=== PATIENT | female | born 1985 | race Caucasian/White ===

== ENCOUNTER → 2020-03-30 15:48 | Outpatient (CLI) | payer MEDICAID, SELFPAY ==
[2020-03-30 15:14] VITALS: BMI 20.2
[2020-03-30 16:56] LABS: Absolute Lymphocyte Count 3.33 X10^3/uL (0.83-4.51); Absolute Neutrophil Count 7.7 X10^3/uL (2.0-7.7); Basophil# 0.03 X10^3/uL; Basophil% 0.3 % (0-1); Eosinophil# 0.05 X10^3/uL; Eosinophils% 0.4 % (0-5); Hematocrit 43.3 % (37-47); Hemoglobin 14.4 g/dL (12.0-15.0); Lymphocyte # 3.33 X10^3/ul (4.0); Lymphocyte % 27.8 % (19-41); Mean Corp Hgb Conc 33.3 g/dL (32-36); Mean Corpuscular Hgb 30.1 pg (27.0-32.0); Mean Corpuscular Volume 90.4 fL (81-99); Mean Platelet Vol. 10.4 fl (6.2-12.0); Monocyte# 0.82 X10^3/uL; Monocyte% 6.9 % (0-10); NRBC Flagged by Analyzer 0 % (0-5); Neutrophil # 7.67 X10^3/uL (2.7-7.7); Neutrophil % 64.1 % (47-70); Platelet Count 332 K/mm3 (150-450); RBC Distribution Width CV 12.7 % (11.6-14.6); RBC Distribution Width SD 41.7 fl (35.1-43.9); Red Blood Count 4.79 M/mm3 (4.2-5.4)
[2020-03-30 18:01] LABS: ALB/GLOB Ratio 1.1 RATIO (0.9-2.4); AST(SGOT) 20 U/L (15-37); Alanine Aminotransfer ALT/SGPT 25 U/L (13-56); Albumin, Serum 4.1 g/dL (3.2-5.0); Alkaline Phosphatase 81 U/L (45-117); Anion Gap 8 (5-15); BUN 10 mg/dL (7-18); BUN/Creat Ratio 12.7 RATIO (10-20); Calcium,Total 9.5 mg/dL (8.5-10.1); Chloride 103 mmol/L (98-107); Creatinine, Serum 0.79 mg/dL (0.55-1.02); EST Glomerular Filtration Rate 89 mL/min (>60); Est Glom Filt Rate - Afr Amer 108 mL/min (>60); Globulin 3.9 g/dL (2.2-4.2); Glucose 88 mg/dL (74-106); Potassium 3.9 mmol/L (3.5-5.1); Sodium Level 137 mmol/L (136-145); T4 Free Direct 0.93 ng/dL (0.76-1.46); Thyroid Stim Hormone (TSH) 5.99 uIU/mL (0.358-3.74)
== END ==
PROVIDERS: PCP Internal Medicine; Referring Provider Internal Medicine; Visit Provider Internal Medicine
DX: R25.1 Tremor, unspecified (principal)
CPT/HCPCS: 36415; 80053; 84439; 84443; 85025

== ENCOUNTER → 2020-03-31 11:06 | Outpatient (CLI) | payer MEDICAID, SELFPAY ==
[2020-03-30 15:14] VITALS: BMI 20.2
--- NOTE | 2020-03-31 11:09 | RAD_ITS ---
STUDY: X-RAY - LUMBAR SPINE REASON FOR EXAM: Female, 34 years old. tremors, foot drop and hip pain TECHNIQUE: 5 view(s) of the lumbar spine were obtained. COMPARISON: None FINDINGS: Normal lumbar lordosis. There is no substantial scoliosis. There is a normal alignment of the vertebrae. Normal vertebral bodies and endplates. Normal disc space heights. The soft tissue structures are unremarkable. RAD/L/S Spine Min 4 Views IMPRESSION: Normal x-ray examination of the lumbar spine. Electronically Signed: Roque Mcneal MD at 8:55 EDT Tel , Service support ,
--- NOTE | 2020-03-31 11:09 | RAD_ITS ---
STUDY: X-RAY - CERVICAL SPINE REASON FOR EXAM: Female, 34 years old. tremors and foot drop TECHNIQUE: 3 view(s) of the cervical spine were obtained. COMPARISON: None FINDINGS: Normal anterior atlantoaxial articulation. Normal odontoid process. Normal cervical lordosis. Normal vertebral bodies and endplates. Normal disc space heights. Normal visualized intervertebral neuroforamina. The soft tissue structures are unremarkable. RAD/Cerv Spine 2 or 3 Views IMPRESSION: Normal x-ray examination of the visualized cervical spine. Electronically Signed: Juwan Vergara MD at 14:23 EDT , Service support ,
== END ==
PROVIDERS: PCP Internal Medicine; Referring Provider Internal Medicine; Visit Provider Internal Medicine
DX: M21.372 Foot drop, left foot (principal); R25.1 Tremor, unspecified
CPT/HCPCS: 72040; 72110

== ENCOUNTER → 2020-05-31 14:35 | Outpatient (CLI) | payer MEDICAID, SELFPAY ==
[2020-05-31 16:16] LABS: T4 Free Direct 1.06 ng/dL (0.76-1.46); Thyroid Stim Hormone (TSH) 1.83 uIU/mL (0.358-3.74)
== END ==
PROVIDERS: PCP Internal Medicine; Referring Provider Internal Medicine; Visit Provider Internal Medicine
DX: R94.6 Abnormal results of thyroid function studies (principal)
CPT/HCPCS: 36415; 84439; 84443

== ENCOUNTER 2020-11-05 08:00 | Outpatient (RCR) | payer MEDICAID, SELFPAY ==
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
--- NOTE | 2020-11-05 08:29 | HP.PTDCSUM ---
It has been my pleasure to treat ROSITA MEJIAS referred by Dr. Dominick Avendano MD, with the diagnosis of spastic hemiplegia, gait abnormality, L shoulder pain for a total of 7 visit(s). Discharge Date: 11/05/20 Please see the following information for a summary of their discharge status. Subjective: Exercises everyday on steps adn cleaning house. Shoulder feels better but stills ometimes it hurts to use it alot like taking garbage out or taking bike for a ride. Hurts 8/10 for a while. Walking is going OK but wants to be better. LB Pain Intensity (Out of 10): 8 % Improvement: 99 Objective/Function: Full B shoulder AROM without pain today. 4-/5 strength in B shoulders without complaints of pain. FGA is +1 from eval. LEFS is +25. Pt very active and does not want to continue HEP. Would love to ex at gym but not realistic for her situation. Goal 1:: I management of stretch adn strength for her condition(at gym or home) Goal Progress: compliane? Goal 2:: Pt feel walking 50% improved adn no falls Goal Progress: Goal Met Goal 3:: L shoulder 4- elevation withotu popping. and 505 improvement in L shoulder movmeent subjectively. Goal Progress: Goal Met Plan: d/c Discharge Comments: Pt doing very well and back to Dr. Avendano in two weeks. If there are questions or concerns regarding this patient's physical therapy, please feel free to call me at [phone]. Thank you for the referral of this patient. Sincerely, Nick Zheng, DPT, OCS, CSCS
== END 2020-11-05 08:41 | disposition home or self-care (01) ==
LOC: PT 08:00
PROVIDERS: PCP Internal Medicine; Referring Provider Psychiatry & Neurology Neurology; Visit Provider Psychiatry & Neurology Neurology
DX: G81.10 Spastic hemiplegia affecting unspecified side (principal); R26.9 Unspecified abnormalities of gait and mobility; M25.512 Pain in left shoulder
CPT/HCPCS: 97110; 97162; 97164; 97530

== ENCOUNTER 2021-02-20 22:14 | Emergency (ER) | payer MEDICAID, SELFPAY ==
[2021-02-20 22:14] VITALS: BP 118/90; PULSE 89; RESP 18; TEMP 36.2; O2SAT 100; BMI 24.5
--- NOTE | 2021-02-20 22:30 | RAD_ITS ---
EXAM: XR RIGHT ANKLE COMPLETE, 3 OR MORE VIEWS : 1985 CLINICAL INDICATION: PAIN TECHNIQUE: Frontal, lateral and oblique views of the right ankle. This report was created using [employer] report generation technology. COMPARISON: None. FINDINGS: BONES/JOINTS: Unremarkable. No acute fracture. No subluxation. Normal alignment. Preservation of the joint space. No sclerotic or destructive changes observed. SOFT TISSUES: Unremarkable. No soft tissue swelling or gas. No radiopaque foreign body. RAD/Ankle min 3 Views IMPRESSION: Negative right ankle x-rays. at 2259 Reported and signed by: Gurjit Kebede MD Electronically Signed: Gurjit Kebede MD at 22:58 EDT Tel , Service support ,
--- NOTE | 2021-02-20 23:27 | EDS_ITS ---
HPI History of Present Illness Chief Complaint: Lower Extremity Injury Informant: patient Onset/Context/Timing Current Severity: Moderate Maximum Severity: Moderate Narrative Narrative: Patient present secondary to right leg pain. She has a history of spastic hemiparesis. She reports right leg pain today that started around the ankle and goes up her leg. She denies any known injury, but does state has been helping a friend move recently. She is been going up and down steps more than normal. Patient is currently on tizanidine to help with spasms. She has not yet taken her evening dose. She does not have any risk factors for DVT. [facility] Medical History Essential tremor History of bladder infections Spastic hemiparesis Home Medications primidone 50 mg tablet 50 mg PO BID #60 tab 11/30/20 [Rx Last Taken Unknown] tizanidine 4 mg tablet See Rx Instructions PO QHS PRN #60 tab 11/30/20 [Rx Last Taken Unknown] Allergy/AdvReac Type Severity Reaction Status Date / Time codeine AdvReac Hives Verified 02/20/21 22:16 Family History Mother Myocardial infarction Father Myocardial infarction Grandmother Lung cancer Other Alcoholism Asthma Breast cancer Colon cancer Depression Seizures Surgical History History of tubal ligation Social History Smoking Status: Current every day smoker tobacco type: cigarettes Tobacco: How many years used: 10 Electronic Cigarette Use: not used second hand exposure: Yes alcohol intake: current alcohol intake frequency: holidays/special occasions only substance use type: marijuana what type of physical activity do you participate in: none ROS ROS ED Constitutional Constitutional ED: Denies chills or fever(s) Eyes Eyes: Denies change in vision ENT ENT ED: Denies sore throat Cardiovascular Cardiovascular: Denies chest pain Respiratory/Chest Respiratory/Chest: Denies cough or dyspnea Gastrointestinal Gastrointestinal: Denies abdominal pain, diarrhea, nausea or vomiting Genitourinary Genitourinary ED: Denies dysuria Musculoskeletal Musculoskeletal: Reports arthralgias and myalgias; Denies back pain Integumentary Denies rash Neurologic Neurologic: Denies headache(s) Allergic/Immunologic Allergic/Immunologic ED: Denies urticaria EXAM Physical Exam Const Vital Signs: 02/20/21 22:14 Temperature 97.1 F L Temperature Source Temporal Pulse Rate 89 Respiratory Rate 18 Blood Pressure 118/90 H Blood Pressure Mean 99 Pulse Ox 100 Oxygen Delivery Method Room Air Positive well nourished and well developed General Appearance ED: well developed Eyes PERRL Neck full ROM Chest Wall inspection of chest normal and palpation of chest normal Resp normal respiratory effort and clear to auscultation bilaterally Cardio regular rate and regular rhythm GI non-tender Auscultation: normoactive bowel sounds Palpation: soft Extremity normal to inspection Extremity Narrative: Tenderness palpation around the right ankle and right calf. No significant edema or erythema. No palpable cords. Strong distal pulses noted. Neuro oriented x3 and moves all extremities Neuro Narrative: Some spasticity noted in the right leg chronically. No significant deficits. Sensorium / Orientation: alert Psych mental status grossly normal Skin Lesions: no lesions Rashes: no rashes MDM MDM MDM Narrative Medical decision making narrative: Right ankle x-rays were obtained per nursing protocol. Radiography Diagnostic Testing: Radiology Impression Ankle X-Ray 02/20/21 22:30 IMPRESSION: Negative right ankle x-rays. at 2259 Reported and signed by: Gurjit Kebede MD Electronically Signed: Gurjit Kebede MD at 22:58 EDT Tel , Service support , Treatment and Re-Evaluation Comments:: Right ankle x-ray per my interpretation reveals no acute fracture. Test results discussed with patient. At this point we will have the patient return tomorrow for ultrasound of her leg to ensure no DVT. I have low suspicion for this so she will not be covered with anticoagulants tonight. She will continue her pain medications at home per her neurologist. Discharge Plan Triage Chief Complaint: Lower Extremity Injury ED Provider: Caroline Mueller Dx/Rx/DC Orders Clinical Impression: Pain of right calf Instructions: ED Pain, Acute, Uncertain Cause, ED Muscle Strain, Extremity Prescriptions: No Action primidone 50 mg tablet 50 mg PO BID Qty: 60 RF: 2 tizanidine 4 mg tablet See Rx Instructions PO QHS PRN (Reason: muscle spasticity) Qty: 60 RF: 3 Other Ambulatory Orders: Venous Duplex US, Unilateral (Routine) Facility: [facility] [place] - Location: [facility] Ordered By: Dr. Caroline Mueller Primary Care Provider: Arianne Panda Referrals: Arianne Panda MD [Primary Care Provider] - 1 Week if not improving Disposition Disposition: Home, Self Care Discharge Date/Time: 02/20/21 23:41
== END 2021-02-20 23:41 | disposition home or self-care (01) ==
LOC: ED 23:39
PROVIDERS: Emergency Provider Emergency Medicine; PCP Internal Medicine
DX: M79.661 Pain in right lower leg (principal); G25.0 Essential tremor; G81.10 Spastic hemiplegia affecting unspecified side; F17.210 Nicotine dependence, cigarettes, uncomplicated
CPT/HCPCS: 73610; 99284

== ENCOUNTER → 2021-02-24 08:58 | Outpatient (CLI) | payer MEDICAID, SELFPAY ==
--- NOTE | 2021-02-24 09:00 | VDLE_ITS ---
Reason For Study: Pain RIGHT LEFT GSV is normal. CFV is compressible, spontaneous, phasic, CFV is compressible, spontaneous, phasic, competent, and demonstrates normal competent and demonstrates normal augmentation. augmentation. FV is compressible, spontaneous, phasic, competent and demonstrates normal augmentation. POP V is compressible, spontaneous, phasic, competent and demonstrates normal augmentation. T/P Trunk is compressible. PTV is compressible. RT PerV is compressible. Nonvascularized structure noted in the right popliteal fossa that measures 1.64 x 3.21 x 2.34 cm. Procedure This is a venous duplex using B-mode, color flow and spectral Doppler. Exam performed in department. A preliminary report was called and/or faxed to PCP: Farzad. Sudhir seen in ED 02/19/2021. VL/Venous Duplex US, Unilateral Interpretation Summary There is no evidence of right lower extremity deep vein thrombosis. Right great saphenous vein appears patent and compressible segmentally. 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 Clinical correlation would be appropriate Normal flow patterns left common femoral vein Ordering Physician: Caroline Mueller Referring Physician: Arianne Panda Performed By: Ophelia Stallings RVT
== END ==
PROVIDERS: PCP Internal Medicine; Referring Provider Emergency Medicine; Visit Provider Emergency Medicine
DX: M79.604 Pain in right leg (principal)
CPT/HCPCS: 93971

== ENCOUNTER → 2022-01-23 | Outpatient (CLI) | payer MEDICAID, SELFPAY | END | disposition home or self-care (01) | PROVIDERS: PCP Internal Medicine; Referring Provider Nurse Practitioner Family; Visit Provider Nurse Practitioner Family | DX: G81.10 Spastic hemiplegia affecting unspecified side (principal); S06.9X9S Unspecified intracranial injury with loss of consciousness of unspecified duration, sequela; R25.1 Tremor, unspecified ==

== ENCOUNTER → 2023-07-09 | Outpatient (CLI) | payer MEDICAID, SELFPAY ==
[2023-07-09 12:20] LABS: Absolute Lymphocyte Count 1.72 X10^3/uL (0.83-4.51); Absolute Neutrophil Count 6.5 X10^3/uL (2.0-7.7); Basophil# 0.04 X10^3/uL; Basophil% 0.4 % (0-1); Eosinophil# 0.08 X10^3/uL; Eosinophils% 0.9 % (0-5); Hematocrit 43.1 % (37-47); Hemoglobin 14.4 g/dL (12.0-15.0); Lymphocyte # 1.72 X10^3/ul (0.83-4.51); Lymphocyte % 18.6 % (19-41); Mean Corp Hgb Conc 33.4 g/dL (32-36); Mean Corpuscular Hgb 30.7 pg (27.0-32.0); Mean Corpuscular Volume 91.9 fL (81-99); Mean Platelet Vol. 10.3 fl (6.2-12.0); Monocyte# 0.92 X10^3/uL; Monocyte% 9.9 % (0-10); NRBC Flagged by Analyzer 0 % (0-5); Neutrophil # 6.46 X10^3/uL (2.7-7.7); Neutrophil % 69.8 % (47-70); Platelet Count 320 K/mm3 (150-450); RBC Distribution Width CV 13.7 % (11.6-14.6); RBC Distribution Width SD 46.5 fl (35.1-43.9); Red Blood Count 4.69 M/mm3 (4.2-5.4); White Blood Count 9.3 K/mm3 (4.4-11.0)
[2023-07-09 12:55] LABS: Vitamin D,25 Hydroxy 23.4 ng/mL
[2023-07-09 12:58] LABS: ALB/GLOB Ratio 1.1 RATIO (0.9-2.4); AST(SGOT) 19 U/L (15-37); Alanine Aminotransfer ALT/SGPT 18 U/L (13-56); Alkaline Phosphatase 89 U/L (45-117); Anion Gap 5 (5-15); BUN 10 mg/dL (7-18); BUN/Creat Ratio 12.6 RATIO (10-20); Calcium,Total 9.6 mg/dL (8.5-10.1); Chloride 106 mmol/L (98-107); Cholesterol 238 mg/dL (200); EST Glomerular Filtration Rate 86 mL/min (>60); Est Glom Filt Rate - Afr Amer 105 mL/min (>60); Globulin 3.7 g/dL (2.2-4.2); Glucose 102 mg/dL (74-106); High Density Lipoprotein 77 mg/dL; Potassium 4.3 mmol/L (3.5-5.1); Protein, Total 7.7 g/dL (6.4-8.2); Sodium Level 138 mmol/L (136-145); Triglycerides 73 mg/dL; Very Low Density Lipoprotein 15 mg/dL (5-40)
== END | disposition home or self-care (01) ==
LOC: BIMLAB 09:50
PROVIDERS: PCP Internal Medicine; Referring Provider Internal Medicine; Visit Provider Internal Medicine
DX: Z00.00 Encounter for general adult medical examination without abnormal findings (principal); Z13.21 Encounter for screening for nutritional disorder
CPT/HCPCS: 36415; 80053; 80061; 82306; 85025

== ENCOUNTER → 2024-01-16 | Outpatient (CLI) | payer MEDICARE, MEDICAID, SELFPAY ==
[2024-01-16 13:11] LABS: Cholesterol 258 mg/dL (200); High Density Lipoprotein 71 mg/dL; T4 Free Direct 0.48 ng/dL (0.76-1.46); Triglycerides 135 mg/dL; Very Low Density Lipoprotein 27 mg/dL (5-40)
== END | disposition home or self-care (01) ==
LOC: BIMLAB 09:33
PROVIDERS: PCP Internal Medicine; Referring Provider Internal Medicine; Visit Provider Internal Medicine
DX: E78.5 Hyperlipidemia, unspecified (principal)
CPT/HCPCS: 36415; 80061; 84439; 84443

== ENCOUNTER → 2024-05-09 | Outpatient (CLI) | payer MEDICARE, MEDICAID, SELFPAY ==
[2024-05-21 11:09] LABS: HPV APTIMA, High Risk Negative (Negative)
== END | disposition home or self-care (01) ==
LOC: LABSPEC 13:42
PROVIDERS: PCP Internal Medicine; Referring Provider Obstetrics & Gynecology; Visit Provider Obstetrics & Gynecology
DX: Z12.4 Encounter for screening for malignant neoplasm of cervix (principal)
CPT/HCPCS: 87624; 88175; G0145

== ENCOUNTER → 2024-07-23 | Outpatient (CLI) | payer MEDICARE, MEDICAID, SELFPAY ==
[2024-07-23 13:23] LABS: ALB/GLOB Ratio 1.1 RATIO (0.9-2.4); AST(SGOT) 21 U/L (15-37); Alanine Aminotransfer ALT/SGPT 20 U/L (13-56); Albumin, Serum 4.1 g/dL (3.2-5.0); Alkaline Phosphatase 80 U/L (45-117); Anion Gap 5 (5-15); BUN 14 mg/dL (7-18); BUN/Creat Ratio 16.1 RATIO (10-20); Calcium,Total 9.6 mg/dL (8.5-10.1); Chloride 107 mmol/L (98-107); Cholesterol 259 mg/dL (200); Creatinine, Serum 0.87 mg/dL (0.55-1.02); EST Glomerular Filtration Rate 78 mL/min (>60); Est Glom Filt Rate - Afr Amer 94 mL/min (>60); Globulin 3.6 g/dL (2.2-4.2); Glucose 86 mg/dL (74-106); High Density Lipoprotein 74 mg/dL; Potassium 4.6 mmol/L (3.5-5.1); Protein, Total 7.7 g/dL (6.4-8.2); Sodium Level 138 mmol/L (136-145); T4 Free Direct 0.38 ng/dL (0.76-1.46); Triglycerides 120 mg/dL; Very Low Density Lipoprotein 24 mg/dL (5-40)
== END | disposition home or self-care (01) ==
LOC: BIMLAB 10:18
PROVIDERS: PCP Internal Medicine; Referring Provider Internal Medicine; Visit Provider Internal Medicine
DX: E03.9 Hypothyroidism, unspecified (principal); E78.5 Hyperlipidemia, unspecified
CPT/HCPCS: 36415; 80053; 80061; 84439; 84443

== ENCOUNTER → 2024-10-29 | Outpatient (CLI) | payer MEDICARE, MEDICAID, SELFPAY ==
[2024-10-29 12:19] LABS: Absolute Lymphocyte Count 1.34 X10^3/uL (0.83-4.51); Absolute Neutrophil Count 7.7 X10^3/uL (2.0-7.7); Basophil# 0.04 X10^3/uL; Basophil% 0.4 % (0-1); Eosinophil# 0.08 X10^3/uL; Eosinophils% 0.8 % (0-5); Hematocrit 40.8 % (37-47); Hemoglobin 13.3 g/dL (12.0-15.0); Lymphocyte # 1.34 X10^3/ul (0.83-4.51); Lymphocyte % 13.4 % (19-41); Mean Corp Hgb Conc 32.6 g/dL (32-36); Mean Corpuscular Hgb 30.2 pg (27.0-32.0); Mean Corpuscular Volume 92.7 fL (81-99); Mean Platelet Vol. 10.4 fl (6.2-12.0); Monocyte# 0.78 X10^3/uL; Monocyte% 7.8 % (0-10); NRBC Flagged by Analyzer 0 % (0-5); Neutrophil # 7.68 X10^3/uL (2.7-7.7); Platelet Count 338 K/mm3 (150-450); RBC Distribution Width CV 13.8 % (11.6-14.6); RBC Distribution Width SD 47.3 fl (35.1-43.9)
[2024-10-29 13:08] LABS: ALB/GLOB Ratio 1.8 RATIO (0.9-2.4); AST(SGOT) 23 U/L (<=31); Alanine Aminotransfer ALT/SGPT 12 U/L (<=34); Albumin, Serum 4.5 g/dL (3.5-5.0); Alkaline Phosphatase 74 U/L (35-104); Anion Gap 11 (5-15); BUN 12 mg/dL (4-19); BUN/Creat Ratio 16.7 RATIO (10-20); Calcium,Total 9.8 mg/dL (7.6-11.0); Carbon Dioxide 24.1 mmol/L (21.0-32.0); Chloride 104 mmol/L (98-108); Cholesterol 271 mg/dL (<=200); Creatinine, Serum 0.74 mg/dL (0.70-1.20); EST Glomerular Filtration Rate 107 (>60); Globulin 2.6 g/dL (2.2-4.2); Glucose 78 mg/dL (70-99); High Density Lipoprotein 64 mg/dL; Low Density Lipoprotein Calc. 178 mg/dL; Potassium 4.1 mmol/L (3.3-5.1); Sodium Level 139 mmol/L (133-145); Total Bilirubin 0.29 mg/dL (0.00-1.30); Triglycerides 143 mg/dL; Very Low Density Lipoprotein 29 mg/dL (5-40); cholesterol:hdl ratio screen 4.23
== END | disposition home or self-care (01) ==
LOC: BIMLAB 09:39
PROVIDERS: PCP Internal Medicine; Visit Provider Internal Medicine
DX: E03.9 Hypothyroidism, unspecified (principal); E78.5 Hyperlipidemia, unspecified
CPT/HCPCS: 36415; 80053; 80061; 84439; 84443; 85025

== ENCOUNTER → 2024-11-20 | Outpatient (CLI) | payer MEDICARE, MEDICAID, SELFPAY ==
--- NOTE | 2024-11-20 10:55 | EKG12_ITS ---
Test Reason : HYPERTENSION Blood Pressure : */* mmHG Vent. Rate : 99 BPM Atrial Rate : 99 BPM P-R Int : 130 ms QRS Dur : 60 ms QT Int : 338 ms P-R-T Axes : 79 82 63 degrees QTcB Int : 433 ms Normal sinus rhythm Septal infarct , age undetermined Abnormal ECG Confirmed by ELLI THOMAS, SARA ([id number]), editorial clerk VICKI FREDERICK ([id number]) on 11/24/2024 7:01:48 AM Referred By: Arianne Panda Confirmed By: SARA CALLOWAY MD
--- OUTSIDE RECORDS SUMMARY | 2024-11-20 20:36 | XMS RPT_ITS | CCD ---
Author Organization [facility] Care Team Providers Care [employer] Director Name Role Phone Dr. Arianne Panda Primary Care Provider [phone] Dr. Arianne Panda Referring Provider [phone] [place] INSURANCE INSPECTOR, FELA Cr Attending Provider Dr. Arianne Panda Primary Care Provider [phone] Dr. Arianne Panda Attending Provider [phone] Dr. Arianne Panda Referring Provider [phone] Dr. Arianne Panda MD Primary Care Provider Dr. Arianne Panda MD Attending Provider [phone] Dr. Arianne Panda MD Referring Provider [phone] Oleghe, Efewongbe Primary Care Unavailable Oleghe, Efewongbe Attending Unavailable Oleghe, Efewongbe Primary Care Unavailable Oleghe, Efewongbe Attending Unavailable Oleghe, Efewongbe Referring Unavailable Oleghe, Efewongbe Primary Care Unavailable VandCaroline Reyes Attending Unavailabl e Vande VelCaroline wadsworth Referring Unavailabl e Oleghe, Efewongbe Attending Unavailable Oleghe, Efewongbe Referring Unavailable Oleghe, Efewongbe Primary Care Unavailable Vande Caroline Nelson Attending Unavailabl e Vande VeldeCaroline Referring Unavailabl e Oleghe, Efewongbe Primary Care Unavailable Oleghe, Efewongbe Primary Care Unavailable Oleghe, Efewongbe Attending Unavailable Oleghe, Efewongbe Referring Unavailable Oleghe, Efewongbe Primary Care Unavailable Oleghe, Efewongbe Attending Unavailable Oleghe, Efewongbe Referring Unavailable Oleghe, Efewongbe Primary Care Unavailable Caroline Jose Attending Unavailabl e Oleghe, Efewongbe Referring Unavailable Naa Garza Attending Unavailable Oleghe, Efewongbe Referring Unavailable Oleghe, Efewongbe Primary Care Unavailable Naa Garza Attending Unavailable Oleghe, Efewongbe Referring Unavailable Oleghe, Efewongbe Primary Care Unavailable Oleghe, Efewongbe Primary Care Unavailable Oleghe, Efewongbe Attending Unavailable Oleghe, Efewongbe Referring Unavailable Oleghe, Efewongbe Primary Care Unavailable Oleghe, Efewongbe Attending Unavailable Oleghe, Efewongbe Referring Unavailable Oleghe, Efewongbe Primary Care Unavailable Oleghe, Efewongbe Attending Unavailable Oleghe, Efewongbe Referring Unavailable Allergies Allergy Classification Reported Allergen(s) Allergy Type Date of Onset Reaction(s) Facility (4 sources) Codeine Drug Allergy 12-06-2021 [facility] (2 sources) tiZANidine Drug Allergy 10-29-2024 [facility] (1 source) Codeine Drug Allergy 10-29-[address] [facility] (1 source) tiZANidine Drug Allergy 10-29-[address] [facility] Medications Current Medications Medication Drug Class(es) Dates Sig (Normalized) Sig (Original) amLODIPine 5 mg oral tablet (3 sources) Dihydropyridine Calcium Channel Jose G Start: 07-23-2024 End: 10-29-2024 take 1 tablet by mouth once daily Amlodipine 5 mg tablet Active 5 mg PO daily October 29, 2024 10:03am busPIRone hydrochloride 5 mg oral tablet (7 sources) Start: 12-06-2021 End: 12-04-2022 take 1 tablet by mouth twice daily Buspirone 5 mg tablet Active 5 mg PO .COMPLEX 60 December 04, 2022 3:26pm Take 1 tablet orally twice per day. levothyroxine sodium 0.1 mg oral tablet (5 sources) l-Thyroxine Start: 10-29-2024 take 1 tablet by mouth once daily Levothyroxine 100 mcg tablet Active 100 ug PO DAILY 60 October 29 2025 2:14pm Start: 07-23-2024 End: 10-29-2024 take 1 tablet by mouth once daily Levothyroxine 75 mcg tablet Discontinued 75 ug PO DAILY July 23, 2024 5:42pm October 29, 2024 2:15pm Start: 01-17-2024 End: 07-23-2024 take 1 tablet by mouth once daily Levothyroxine 50 mcg tablet Discontinued 50 ug PO DAILY January 17, 2024 12:00am July 23, 2024 5:43pm omeprazole 40 mg delayed release oral capsule (8 sources) Proton Pump Inhibitor Start: 07-09-2023 End: 10-29-2024 take 1 capsule by mouth once daily 30 minutes before breakfast Omeprazole 40 mg capsule,delayed release(DR/EC) Active 40 mg PO DAILY October 29, 2024 10:03am Take 30 minutes before breakfast primidone 50 mg oral tablet (20 sources) Anti-epileptic Agent Start: 12-06-2021 End: 10-29-2024 take 1 tablet by mouth three times daily Primidone 50 mg tablet Active 50 mg PO .COMPLEX October 29, 2024 10:03am Take 1 tablet orally 3 times per day. Start: 11-23-2021 End: 12-06-2021 take 1 tablet by mouth twice daily Primidone 50 mg tablet Discontinued 50 mg PO TWICE A DAY 60 November 23, 2021 1:22pm December 06, 2021 3:26pm Start: 07-28-2021 End: 11-23-2021 Primidone 50 mg tablet Disco ntinued 0 .ROUTE .COMPLEX September 28, 2021 11:08am November 23, 2021 1:23pm Take half a tablet PO once daily x 1 week, then half a tablet twice daily x 1 week, then 1 tablet BID thereafter Start: 11-30-2020 End: 07-28-2021 take 1 tablet by mouth twice daily Primidone 50 mg tablet Discontinued 50 mg PO TWICE A DAY March 07, 2021 1:08pm July 28, 2021 4:57pm Start: 09-07-2020 End: 11-30-2020 take 0.5 tablet by mouth once daily, then take 0.5 tablet by mouth twice daily, then take 1 tablet by mouth twice daily Primidone 50 mg tablet Discontinued 50 mg PO ONCE 60 September 07, 2020 12:00am November 30, 2020 4:38pm one-half tablet PO daily for one week then one-half PO BID for one week then one tablet PO BID thereafter rosuvastatin calcium 10 mg oral tablet (1 source) HMG-CoA Reductase Inhibitor Start: 10-29-2024 take 1 tablet by mouth once daily Rosuvastatin 10 mg tablet Active 10 mg PO daily October 29, 2024 12:00am Completed/Discontinued Medications Medication Drug Class(es) Dates Sig (Normalized) Sig (Original) baclofen 10 mg oral tablet (4 sources) gamma-Aminobutyric Acid-ergic Agonist Start: 06-22-2020 End: 09-07-2020 take 1 tablet by mouth three times daily Baclofen 10 mg tablet Discontinued 10 mg PO THREE TIMES A DAY June 22, 2020 1:00am September 07, 2020 1:27pm metroNIDAZOLE 500 mg oral tablet (2 sources) Nitroimidazole Antimicrobial Start: 05-26-2024 End: 06-02-2024 take 1 tablet by mouth twice daily Metronidazole 500 mg tablet Discontinued 500 mg PO TWICE A DAY 14 May 26, 2024 1:00am June 01, 2024 1:00am June 02, 2024 1:09am tiZANidine 4 mg oral tablet (20 sources) Central alpha-2 Adrenergic Agonist Start: 12-04-2022 take 3 tablets by mouth once daily Tizanidine Active 12 MG PO .COMPLEX December 04, 2022 2:29pm Take 3 tabs orally nightly. Start: 12-06-2021 End: 01-16-2024 take 3 tablets by mouth once daily Tizanidine 4 mg tablet Discontinued 12 mg PO .COMPLEX December 04, 2022 3:29pm January 16, 2024 9:16am Take 3 tabs orally nightly. Start: 12-06-2021 End: 12-04-2022 take 12 mg by mouth at bedtime Tizanidine Discontinued 12 MG PO AT BEDTIME December 06, 2021 2:21pm December 04, 2022 2:30pm Start: 11-30-2020 End: 12-06-2021 take 4-8 mg by mouth at bedtime as needed Tizanidine 4 mg tablet Discontinued 4 - 8 mg PO AT BEDTIME as needed for muscle spasticity 60 November 23, 2021 1:23pm December 06, 2021 3:26pm Start: 11-30-2020 End: 12-06-2021 take 4-8 mg by mouth at bedtime Tizanidine Discontinue d 4 - 8 MG PO AT BEDTIME 60 November 23, 2021 12:23pm December 06, 2021 2:26pm Problems Active Problems Problem Classification Problem Date Documented Date Episodic/Chronic Anxiety disorders (4 sources) Anxiety; Translations: [Anxiety disorder, unspecified] 12-04-2022 Chronic Disorders of lipid metabolism (6 sources) Hyperlipidemia; Translations: [Hyperlipidemia, unspecified] Onset: 10-29-2024 07-23-2024 Chronic Esophageal disorders (7 sources) Gastroesophageal reflux disease; Translations: [Gastro-esophageal reflux disease without esophagitis] Onset: 01-25-2024 07-09-2023 Chronic Essential hypertension (7 sources) Hypertensive disorder; Translations: [Essential (primary) hypertension] Onset: 07-23-2024 07-23-2024 Chronic Intracranial injury (5 sources) Intracranial injury with loss of consciousness; Translations: [Unspecified intracranial injury with loss of consciousness of unspecified duration, sequela] Episodic Menstrual disorders (1 source) Excessive and frequent menstruation with regular cycle; Translations: [Excessive and frequent menstruation with regular cycle] Onset: 05-19-2024 Chronic Other connective tissue disease (4 sources) Pain in calf; Translations: [Pain in right lower leg] 02-20-2021 Episodic Other connective tissue disease (2 sources) Foot pain; Translations: [Pain in unspecified foot] 01-16-2024 Episodic Other female genital disorders (2 sources) Abnormal uterine bleeding; Translations: [Abnormal uterine and vaginal bleeding, unspecified] 05-09-2024 Chronic Other female genital disorders (2 sources) Vaginal discharge; Translations: [Other specified noninflammatory disorders of vagina] 06-25-2024 Episodic Comment on above: previous trich posit verónica; treated with flagyl Other hereditary and degenerative nervous system conditions (4 sources) Essential tremor; Translations: [Essential tremor] 12-07-2021 Chronic Other hereditary and degenerative nervous system conditions (1 source) Essential tremor; Translations: [Essential and other specified forms of tremor] Chronic Other lower respiratory disease (4 sources) Cough; Translations: [Cough] 06-24-2021 Episodic Other skin disorders (3 sources) Lesion of face; Translations: [Disorder of the skin and subcutaneous tissue, unspecified] 07-09-2023 Episodic Paralysis (5 sources) Hemiparesis; Translations: [Spastic hemiplegia affecting unspecified side] Chronic Residual codes; unclassified (4 sources) Insomnia; Translations: [Insomnia, unspecified] 12-07-2021 Episodic Residual codes; unclassified (1 source) Insomnia, unspecified; Translations: [Insomnia, unspecified] Episodic Thyroid disorders (6 sources) Hypothyroidism; Translations: [Hypothyroidism, unspecified] Onset: 11-01-2024 07-23-2024 Chronic Viral infection (4 sources) Disease caused by 2019-nCoV; Translations: [COVID-19] 06-24-2021 Episodic Past or Other Problems Problem Classification Problem Date Documented Date Episodic/Chronic Other connective tissue disease (1 source) Pain in unspecified foot; Translations: [Pain in unspecified foot] Onset: 01-25-2024 Episodic Other female genital disorders (1 source) Other specified noninflammatory disorders of vagina; Translations: [Other specified noninflammatory disorders of vagina] Onset: 06-25-2024 Episodic Other screening for suspected conditions (not mental disorders or infectious disease) (7 sources) Patient encounter status; Translations: [Encounter for screening for nutritional disorder] Onset: 01-25-2024 07-09-2023 Episodic Results Test Name Value Interpretation Reference Range Facility Absolute lymphocyte countOrd ered By: Arianne Panda on 10-29-2024 Lymphocytes Auto (Unsp spec) [#/Vol] 1.34 10*3/uL 0.83-4.[address] [facility] Absolute neutrophil countOrd ered By: Arianne Panda on 10-29-2024 Neutrophils (Bld) [#/Vol] 7.7 10*3/uL 2.0-7.[address] [facility] Anion gap in Serum or Plasma Ordered By: Arianne Panda on 10-29-2024 Anion gap [Moles/Vol] 11 mmol/L 5-15 [facility] Automated lymphocyte count a s percentage of total leukocytesOrdered By: Arianne Panda on 10-29-2024 Lymphocytes/100 WBC Auto (Unsp spec) 13.4 % Low 19-[address] [facility] BUN/creatinine ratioOrdered By: Arianne Panda on 10-29-2024 Urea nitrogen/Creatinine [Mass ratio] 16.7 mg/mg 10-[address] [facility] Basophil percentageOrdered B y: Arianne Panda on 10-29-2024 Basophils/100 WBC (Bld) 0.4 % 0-1 [facility] Bilirubin, totalOrdered By: Arianne Panda on 10-29-2024 Bilirubin [Mass/Vol] 0.29 mg/dL 0.00-1.30 [facility] CBC W/Diff, Automatedon 10-16 Absolute Lymph 1.34 X10 3/uL Normal 0.83-4.[address] [facility] Comment on above: Performed By: #### L 500.4100, L500.4050, L501.9520, L506.0400, L100.0100 #### [facility] [address] [place], [address] Absolute Neut 7.7 X10 3/uL Normal 2.0-7.[address] [facility] Comment on above: Performed By: #### L 500.4100, L500.4050, L501.9520, L506.0400, L100.0100 #### [facility] [address] [place], [address] Basophils/100 WBC (Bld) 0.4 % Normal 0-1 [facility] Comment on above: Performed By: #### L 500.4100, L500.4050, L501.9520, L506.0400, L100.0100 #### [facility] [address] [place], [address] Eosinophils/100 WBC (Bld) 0.8 % Normal 0-[address] [facility] Comment on above: Performed By: #### L 500.4100, L500.4050, L501.9520, L506.0400, L100.0100 #### [facility] [address] [place], [address] Erythrocyte distribution width (RBC) [Ratio] 13.8 % Normal 11.6-14.[address] [facility] Comment on above: Performed By: #### L 500.4100, L500.4050, L501.9520, L506.0400, L100.0100 #### [facility] [address] [place], [address] Hematocrit (Bld) [Volume fraction] 40.8 % Normal 37-[address] [facility] Comment on above: Performed By: #### L 500.4100, L500.4050, L501.9520, L506.0400, L100.0100 #### [facility] [address] [place], [address] Hemoglobin (Bld) [Mass/Vol] 13.3 g/dL Normal 12.0-15.[address] [facility] Comment on above: Performed By: #### L 500.4100, L500.4050, L501.9520, L506.0400, L100.0100 #### [facility] [address] [place], [address] IG% 0.600 Normal 0.0-0.[address] [facility] Comment on above: Result Comment: IG% - Immature Granulocytes (promyelocytes, myelocytes and metamyelocytes) > 1% indicates that a LEFT SHIFT is Present. Performed By: #### L 500.4100, L500.4050, L501.9520, L506.0400, L100.0100 #### [facility] [address] [place], [address] Lymphocytes/100 WBC (Bld) 13.4 % Low 19-[address] [facility] Comment on above: Performed By: #### L 500.4100, L500.4050, L501.9520, L506.0400, L100.0100 #### [facility] [address] [place], [address] MCH (RBC) [Entitic mass] 30.2 pg Normal 27.0-32.[address] [facility] Comment on above: Performed By: #### L 500.4100, L500.4050, L501.9520, L506.0400, L100.0100 #### [facility] [address] [place], [address] MCHC (RBC) [Mass/Vol] 32.6 g/dL Normal 32-36 [facility] Comment on above: Performed By: #### L 500.4100, L500.4050, L501.9520, L506.0400, L100.0100 #### [facility] [address] [place], [address] MCV (RBC) [Entitic vol] 92.7 fL Normal 81-99 [facility] Comment on above: Performed By: #### L 500.4100, L500.4050, L501.9520, L506.0400, L100.0100 #### [facility] [address] [place], [address] Monocytes/100 WBC (Bld) 7.8 % Normal 0-10 [facility] Comment on above: Performed By: #### L 500.4100, L500.4050, L501.9520, L506.0400, L100.0100 #### [facility] [address] [place], [address] Neutrophils/100 WBC (Bld) 77.0 % High 47-[address] [facility] Comment on above: Performed By: #### L 500.4100, L500.4050, L501.9520, L506.0400, L100.0100 #### [facility] [address] [place], [address] Nucleated RBC (Bld) [#/Vol] 0 10*3/uL Normal 0-[address] [facility] Comment on above: Performed By: #### L 500.4100, L500.4050, L501.9520, L506.0400, L100.0100 #### [facility] [address] [place], [address] Platelet mean volume (Bld) [Entitic vol] 10.4 fL Normal 6.2-12.[address] [facility] Comment on above: Performed By: #### L 500.4100, L500.4050, L501.9520, L506.0400, L100.0100 #### [facility] [address] [place], [address] Platelets (Bld) [#/Vol] 338 10*3/uL Normal 150-[address] [facility] Comment on above: Performed By: #### L 500.4100, L500.4050, L501.9520, L506.0400, L100.0100 #### [facility] [address] [place], [address] RBC (Bld) [#/Vol] 4.40 10*6/uL Normal 4.2-5.4 [facility] Comment on above: Performed By: #### L 500.4100, L500.4050, L501.9520, L506.0400, L100.0100 #### [facility] [address] [place], [address] RDW SD 47.3 fl High 35.1-43.[address] [facility] Comment on above: Performed By: #### L 500.4100, L500.4050, L501.9520, L506.0400, L100.0100 #### [facility] [address] [place], [address] WBC (Bld) [#/Vol] 10.0 10*3/uL Normal 4.4-11.0 [facility] Comment on above: Performed By: #### L 500.4100, L500.4050, L501.9520, L506.0400, L100.0100 #### [facility] [address] [place], [address] Calculated very low density lipoprotein (VLDL) cholesterol measurementOrdered By: Arianne Panda on 10-29-2024 Calculated very low density lipoprotein (VLDL) cholesterol measurement 29 mg/dL 5-[address] [facility] Carbon dioxide, total [Moles /volume] in Central venous bloodOrdered By: Arianne Panda on 10-29-2024 CO2 [Moles/Vol] 24.1 mmol/L 21.0-32.[address] [facility] Chloride assayOrdered By: Eunice Panda on 10-29-2024 Chloride [Moles/Vol] 104 mmol/L 98-108 [facility] Comprehensive Metabolic Prof ilon 10-29-2024 Albumin [Mass/Vol] 4.5 g/dL Normal 3.5-5.0 [facility] Comment on above: Performed By: #### L 500.4100, L500.4050, L501.9520, L506.0400, L100.0100 #### [facility] [address] [place], [address] Albumin/Globulin [Mass ratio] 1.8 {ratio} Normal 0.9-2.[address] [facility] Comment on above: Performed By: #### L 500.4100, L500.4050, L501.9520, L506.0400, L100.0100 #### [facility] [address] [place], [address] ALK PHOS 74 U/L Normal 35-[address] [facility] Comment on above: Performed By: #### L 500.4100, L500.4050, L501.9520, L506.0400, L100.0100 #### [facility] [address] [place], [address] ALT [Catalytic activity/Vol] 12 U/L Normal <=[address] [facility] Comment on above: Performed By: #### L 500.4100, L500.4050, L501.9520, L506.0400, L100.0100 #### [facility] [address] [place], [address] AST [Catalytic activity/Vol] 23 U/L Normal <=[address] [facility] Comment on above: Performed By: #### L 500.4100, L500.4050, L501.9520, L506.0400, L100.0100 #### [facility] [address] [place], [address] Bilirubin [Mass/Vol] 0.29 mg/dL Normal 0.00-1.30 [facility] Comment on above: Performed By: #### L 500.4100, L500.4050, L501.9520, L506.0400, L100.0100 #### [facility] [address] [place], [address] BUN/CRE 16.7 RATIO Normal 10-[address] [facility] Comment on above: Performed By: #### L 500.4100, L500.4050, L501.9520, L506.0400, L100.0100 #### [facility] [address] [place], [address] Calcium [Mass/Vol] 9.8 mg/dL Normal 7.6-11.0 [facility] Comment on above: Performed By: #### L 500.4100, L500.4050, L501.9520, L506.0400, L100.0100 #### [facility] [address] [place], [address] Chloride [Moles/Vol] 104 mmol/L Normal 98-108 [facility] Comment on above: Performed By: #### L 500.4100, L500.4050, L501.9520, L506.0400, L100.0100 #### [facility] [address] [place], [address] CO2 [Moles/Vol] 24.1 mmol/L Normal 21.0-32.[address] [facility] Comment on above: Performed By: #### L 500.4100, L500.4050, L501.9520, L506.0400, L100.0100 #### [facility] [address] [place], [address] Creatinine [Mass/Vol] 0.74 mg/dL Normal 0.70-1.20 [facility] Comment on above: Performed By: #### L 500.4100, L500.4050, L501.9520, L506.0400, L100.0100 #### [facility] [address] [place], [address] GAP 11 Normal 5-[address] [facility] Comment on above: Performed By: #### L 500.4100, L500.4050, L501.9520, L506.0400, L100.0100 #### [facility] [address] [place], [address] GFR/1.73 sq M.predicted among non-blacks MDRD (S/P/Bld) [Vol rate/Area] 107 mL/min/{1.73_m2} Normal >[address] [facility] Comment on above: Result Comment: mL/m in/1.73m2 CKD-EPI Creatinine Equation (2020) Performed By: #### L 500.4100, L500.4050, L501.9520, L506.0400, L100.0100 #### [facility] [address] [place], [address] Globulin (S) [Mass/Vol] 2.6 g/dL Normal 2.2-4.2 [facility] Comment on above: Performed By: #### L 500.4100, L500.4050, L501.9520, L506.0400, L100.0100 #### [facility] [address] [place], [address] Glucose [Mass/Vol] 78 mg/dL Normal 70-99 [facility] Comment on above: Performed By: #### L 500.4100, L500.4050, L501.9520, L506.0400, L100.0100 #### [facility] [address] [place], [address] Potassium [Moles/Vol] 4.1 mmol/L Normal 3.3-5.1 [facility] Comment on above: Performed By: #### L 500.4100, L500.4050, L501.9520, L506.0400, L100.0100 #### [facility] [address] [place], [address] Sodium [Moles/Vol] 139 mmol/L Normal 133-145 [facility] Comment on above: Performed By: #### L 500.4100, L500.4050, L501.9520, L506.0400, L100.0100 #### [facility] [address] [place], [address] T PROT 7.0 g/dL Normal 5.9-8.[address] [facility] Comment on above: Performed By: #### L 500.4100, L500.4050, L501.9520, L506.0400, L100.0100 #### [facility] [address] [place], [address] Urea nitrogen [Mass/Vol] 12 mg/dL Normal 4-[address] [facility] Comment on above: Performed By: #### L 500.4100, L500.4050, L501.9520, L506.0400, L100.0100 #### [facility] [address] [place], [address] Eosinophil percentageOrdered By: Arianne Panda on 10-29-2024 Eosinophils/100 WBC (Bld) 0.8 % 0-[address] [facility] Erythrocyte distribution wid th ratioOrdered By: [facility] Berrienc[facility] Panda on 10-29-2024 Erythrocyte distribution width (RBC) [Ratio] 13.8 % 11.6-14.[address] [facility] Erythrocyte distribution wid th standard deviationOrdered By: lukasfremontcristiano Panda on 10-29-2024 Erythrocyte distribution width (RBC) [Ratio] 47.3 fl High 35.1-43.[address] [facility] Glomerular filtration rate ( GFR) estimation/1.73 sq m using serum, plasma, or whole bOrdered By: [facility] Berriencristiano Panda on 10-29-2024 GFR/1.73 sq M.predicted among non-blacks MDRD (S/P/Bld) [Vol rate/Area] 107 mL/min/{1.73_m2} >[address] [facility] Comment on above: mL/min/1.73m2 CKD-EP I Creatinine Equation (2020) Hematocrit Auto (Bld) [Volum e fraction]Ordered By: Arianne Panda on 10-29-2024 Hematocrit (Bld) [Volume fraction] 40.8 % 37-[address] [facility] Hemoglobin measurementOrdere d By: Arianne Panda on 10-29-2024 Hemoglobin (Bld) [Mass/Vol] 13.3 g/dL 12.0-15.[address] [facility] Immature granulocytes/100 WB C Auto (Bld)Ordered By: Arianne Panda on 10-29-2024 Immature granulocytes/100 WBC (Bld) 0.600 % 0.0-0.[address] [facility] Comment on above: IG% - Immature Granu locytes (promyelocytes, myelocytes and metamyelocytes) > 1% indicates that a LEFT SHIFT is Present. Internal Medicine Office Vis reggie 10-29-2024 Internal Medicine Office Visit [facility] [address] [place] [address] [place] [address] OFFICE VISIT Date of Service: 10/29/24 MR#: [id number] Acct: [id number] Name: ROSITA MEJIAS Rep #: [id number] : 1985 Provider: Dr. 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: No Accompanied by: Jqrawx-Kf-Zer Is patient in pain?: No Allergies tizanidine Allergy (Mild, Verified 10/29/24 08:52) anxiety codeine Adverse Reaction (Verified 10/29/24 08:52) Hives Medications ???Medication ???Instructions ???Recorded ???Confirmed ???Type buspirone 5 mg tablet 5 mg PO .COMPLEX #60 tabs 12/04/22 10/29/24 Rx levothyroxine 75 mcg tablet 75 mcg PO DAILY #60 tabs 07/23/24 10/29/24 Rx amlodipine 5 mg tablet 5 mg PO QDAY #90 tabs 10/29/24 Rx omeprazole 40 mg capsule,delayed 40 mg PO DAILY #90 caps 10/29/24 0 10/29/24 Rx release primidone 50 mg tablet 50 mg PO .COMPLEX #90 tabs 5 10/29/24 Rx Nurse's Note: Needs omeprazole, Synthroid, primidone and amlodipine refilled. [facility] Medical History Hypertension Hypothyroidism Screening for thyroid disorder Hyperlipidemia Foot pain GERD (gastroesophageal reflux disease) Facial lesion Encounter for vitamin deficiency screening Preventative health care Essential tremor Spastic hemiparesis History of bladder infections Surgical History History of tubal ligation Family History Mother Myocardial infarction Father Myocardial infarction Grandmother Lung cancer Other Alcoholism Asthma Breast cancer Colon cancer Depression Seizures Social History Smoking Status: Current every day smoker tobacco type: cigarettes Tobacco: How many years used: 10 Electronic Cigarette Use: not used second hand exposure: Yes alcohol intake: current alcohol intake frequency: holidays/special occasions only substance use type: marijuana caffeine: Yes what type of physical activity do you participate in: none additional social history: Boyfriend- Baljinder [facility] HPI Chief Complaint: follow up chronic conditions Details: ROSITA MEJIAS, is a 39 F who presents to the office today for follow-up of her chronic medical conditions. No acute concerns at this time. History of hypothyroidism and last TSH was quite elevated. She states that she has been taking her levothyroxine consistently first thing in the morning and waiting an hour before having coffee or food. History of hypertension, currently on amlodipine. No chest pain, palpitation or shortness of breath. No syncopal or near syncopal episodes. Blood pressure today at 132/82 mmHg. Other chronic medical conditions are stable. ROS Const Constitutional: No body ache, chills, excessive sweating, fatigue, fever(s), frequent falls, headache(s), snoring, weakness, sleep problems or change in appetite Eyes Eyes: No blurry vision, change in vision, bulging eyes, floaters, eye pain or Light sensitivity ENT ENT: No abnormal hearing, ear or mastoid pain, tinnitus, balance problems, nasal congestion, headache(s), neck pain or sore throat Resp Respiratory: No cough, excessive phlegm production, pain on inspiration, shortness of breath, snoring or wheezing Cardio Cardiology: No chest pain at rest, chest pain with exertion, excessive sweating, shortness of breath, dyspnea on exertion, lightheadedness, orthopnea or palpitations Gastro GI: No abdominal pain, change in bowel habits, constipation, cramping, diarrhea, nausea/dyspepsia or vomiting Genitourinary-Female : No burning urination, painful urination, urinary incontinence, urinary frequency, abnormal vaginal bleeding or pelvic pain Musc Musculoskeletal: No abnormal gait, joint pain, back pain, limited range of motion, neck pain or numbness Skin Skin: No dry skin, redness, excessive hair growth, yellowing of the eye, lesions, itchy eyes, rash or wounds Neuro Neurology: No abnormal gait, abnormal hearing, behavioral changes, unsteady gait/balance, weakness, frequent falls, headache(s), memory loss or (more content not included)... Normal [facility] LDL calc ser/plasOrdered By: Arianne Panda on 10-29-2024 Cholesterol in LDL [Mass/Vol] 178 mg/dL [facility] Comment on above: Hhxiwdymzf=793-849 m g/dL & Higher Vshk=055 mg/dL or greater Laboratory - Chemistry and C hemistry - challengeOrdered By: Arianne Panda on 10-29-2024 AST [Catalytic activity/Vol] 23 U/L <[address] [facility] Lipid Profileon 10-29-2024 CHOL:HDL 4.[address] [facility] Comment on above: Performed By: #### L 500.4100, L500.4050, L501.9520, L506.0400, L100.0100 #### [facility] Laboratory [address] [place], [address] Cholesterol [Mass/Vol] 271 mg/dL High <=200 [facility] Comment on above: Result Comment: Chol esterol level, Desirable <200 mg/dL Borderline high cholesterol 200-239 mg/dL High cholesterol >=240 mg/dL Recommendations of the NCEP Adult Treatment Panel for the following risk-cutoff thresholds for the [place] population. Performed By: #### L 500.4100, L500.4050, L501.9520, L506.0400, L100.0100 #### [facility] [address] [place], [address] Cholesterol in HDL [Mass/Vol] 64 mg/dL Normal [facility] Comment on above: Result Comment: Franicne onal Cholesterol Education Program (NCEP) guidelines: <40 mg/dL: Low HDL-cholesterol (major risk factor for CHD) >= 60 mg/dL: High HDL-cholesterol (negative risk factor for CHD) HDL-cholesterol is affected by a number of factors, e.g. smoking, exercise, hormones, sex and age. Performed By: #### L 500.4100, L500.4050, L501.9520, L506.0400, L100.0100 #### [facility] [address] [place], [address] Cholesterol in LDL [Mass/Vol] 178 mg/dL Normal [facility] Comment on above: Result Comment: Bord eezeys=029-425 mg/dL Higher Antj=638 mg/dL or greater Performed By: #### L 500.4100, L500.4050, L501.9520, L506.0400, L100.0100 #### [facility] [address] [place], [address] Cholesterol in VLDL [Mass/Vol] 29 mg/dL Normal 5-[address] [facility] Comment on above: Performed By: #### L 500.4100, L500.4050, L501.9520, L506.0400, L100.0100 #### [facility] [address] [place], [address] Triglyceride [Mass/Vol] 143 mg/dL Normal [facility] Comment on above: Result Comment: The drugs N-Acetylcysteine and Metamizole may falsely depress this assay. Normal range: <150 mg/dL Borderline High: 150-199 mg/dL High: 200-499 mg/dL Very High: >500 mg/dL Performed By: #### L 500.4100, L500.4050, L501.9520, L506.0400, L100.0100 #### [facility] [address] [place], [address] MCV (mean corpuscular volume ) determinationOrdered By: Arianne Panda on 10-29-2024 MCV (RBC) [Entitic vol] 92.7 fL 81-99 [facility] Mean corpuscular hemoglobin (MCH) determinationOrdered By: Arianne Panda on 10-29-2024 MCH (RBC) [Entitic mass] 30.2 pg 27.0-32.[address] [facility] Mean corpuscular hemoglobin concentration (MCHC) determinationOrdered By: Arianne Panda on 10-29-2024 MCHC (RBC) [Mass/Vol] 32.6 g/dL 32-36 [facility] Mean platelet volume determi nationOrdered By: Arianne Panda on 10-29-2024 Platelet mean volume (Bld) [Entitic vol] 10.4 fL 6.2-12.[address] [facility] Monocyte percentageOrdered B y: Arianne Panda on 10-29-2024 Monocytes/100 WBC (Bld) 7.8 % 0-10 [facility] Neutrophil percentageOrdered By: Simranfremontcristiano Panda on 10-29-2024 Neutrophils/100 WBC (Bld) 77.0 % High 47-[address] [facility] Nucleated red blood cell per centageOrdered By: Arianne Panda on 10-29-2024 Nucleated RBC/100 WBC (Bld) [Ratio] 0 % 0-[address] [facility] Platelet countOrdered By: Eunice Panda on 10-29-2024 Platelets (Bld) [#/Vol] 338 10*3/uL 150-[address] [facility] Potassium measurement (mass/ volume)Ordered By: Arianne Panda on 10-29-2024 Potassium (Unsp spec) [Mass/Vol] 4.1 mmol/L 3.3-5.[address] [facility] RBC Auto (Bld) [#/Vol]Ordere d By: Arianne Panda on 10-29-2024 RBC (Bld) [#/Vol] 4.40 10*6/uL 4.2-5.4 [facility] Screening total cholesterol/ high density lipoprotein (HDL) cholesterol ratioOrdered By: Arianne Panda on 10-29-2024 Cholesterol.total/Choles terol in HDL [Mass ratio] 4.23 {ratio} [facility] Serum creatinine measurement (mass/volume)Ordered By: Arianne Panda on 10-29-2024 Creatinine [Mass/Vol] 0.74 mg/dL 0.70-1.20 [facility] Serum globulin measurementOr dered By: Arianne Panda on 10-29-2024 Globulin (S) [Mass/Vol] 2.6 g/dL 2.2-4.2 [facility] Serum glucose measurement (m ass/volume)Ordered By: Arianne Panda on 10-29-2024 Glucose [Mass/Vol] 78 mg/dL 70-99 [facility] Serum or plasma alanine bryant otransferase (ALT) measurementOrdered By: Arianne Panda on 10-29-2024 ALT [Catalytic activity/Vol] 12 U/L <[address] [facility] Serum or plasma albumin dawit urement (mass/volume)Ordered By: Arianne Panda on 10-29-2024 Albumin [Mass/Vol] 4.5 g/dL 3.5-5.0 [facility] Serum or plasma albumin/glob ulin mass ratioOrdered By: Arianne Panda on 10-29-2024 Albumin/Globulin [Mass ratio] 1.8 {ratio} 0.9-2.[address] [facility] Serum or plasma alkaline jany sphatase measurementOrdered By: Arianne Panda on 10-29-2024 ALP [Catalytic activity/Vol] 74 U/L 35-[address] [facility] Serum or plasma calcium dawit urement (mass/volume)Ordered By: Arianne Panda on 10-29-2024 Calcium [Mass/Vol] 9.8 mg/dL 7.6-11.0 [facility] Serum or plasma cholesterol in HDL measurement (mass/volume)Ordered By: Arianne Panda on 10-29-2024 Cholesterol in HDL [Mass/Vol] 64 mg/dL >[address] [facility] Comment on above: National Cholesterol Education Program (NCEP) guidelines:<40 mg/dL: Low HDL-cholesterol (major risk factor for CHD)>= 60 mg/dL: High HDL-cholesterol (negative risk factor for CHD)HDL-cholesterol is affected by a number of factors, e.g. smoking, exercise, hormones, sex and age. Serum or plasma cholesterol measurement (mass/volume)Ordered By: Arianne Panda on 10-29-2024 Cholesterol [Mass/Vol] 271 mg/dL High <201 [facility] Comment on above: Cholesterol level, D esirable <200 mg/dLBorderline high cholesterol 200-239 mg/dLHigh cholesterol >=240 mg/dLRecommendations of the NCEP Adult Treatment Panel for the following risk-cutoff thresholds for the [place] population. Serum or plasma urea nitroge n measurement (mass/volume)Ordered By: Arianne Panda on 10-29-2024 Urea nitrogen [Mass/Vol] 12 mg/dL 4-[address] [facility] Sodium levelOrdered By: Simran peraltadavinjabier Panda on 10-29-2024 Sodium [Moles/Vol] 139 mmol/L 133-145 [facility] T4 Free Directon 10-29-2024 T4 FREE DIRECT 0.70 ng/dL Low 0.76-1.[address] [facility] Comment on above: Performed By: #### L 500.4100, L500.4050, L501.9520, L506.0400, L100.0100 #### [facility] [address] [place], [place], [id number] T4 freeOrdered By: Arianne Panda on 10-29-2024 Free T4 [Mass/Vol] 0.70 ng/dL Low 0.76-1.46 [facility] TSH DL <= 0.005 mIU/L QnOrde red By: Arianne Panda on 10-29-2024 TSH Qn 44.600 uIU/mL High 0.300-4.[address] [facility] Thyroid Stim Hormone (TSH)on 10-29-2024 TSH 44.600 uIU/mL High 0.300-4.[address] [facility] Comment on above: Performed By: #### L 500.4100, L500.4050, L501.9520, L506.0400, L100.0100 #### [facility] [address] [place], [address] Total proteinOrdered By: Zac Panda on 10-29-2024 Protein [Mass/Vol] 7.0 g/dL 5.9-8.4 [facility] Triglycerides measurementOrd ered By: Arianne Panda on 10-29-2024 Triglyceride [Mass/Vol] 143 mg/dL <199 [facility] Comment on above: The drugs N-Acetylcy steine and Metamizole may falsely depress this assay. Normal range: <150 mg/dLBorderline High: 150-199 mg/dLHigh: 200-499 mg/dLVery High: >500 mg/dL White blood cell (WBC) count Ordered By: Arianne Panda on 10-29-2024 WBC (Bld) [#/Vol] 10.0 10*3/uL 4.4-11.0 [facility] Albumin to globulin ratioOrd ered By: Arianne Panda on 07-23-2024 Albumin/Globulin [Mass ratio] 1.1 {ratio} 0.9-2.[address] [facility] Bilirubin, totalOrdered By: Arianne Panda on 07-23-2024 Bilirubin [Mass/Vol] 0.60 mg/dL 0.20-1.00 [facility] Comment on above: For patients on eltr ombopag therapy, use of Dimension [place] TBIL is not recommended. Blood urea nitrogen (BUN)/cr eatinine ratioOrdered By: Arianne Panda on 07-23-2024 Urea nitrogen/Creatinine [Mass ratio] 16.1 mg/mg 10-[address] [facility] Carbon dioxide measurementOr dered By: Arianne Panda on 07-23-2024 CO2 [Moles/Vol] 27.0 mmol/L 21.0-32.[address] [facility] Chloride measurementOrdered By: Arianne Panda on 07-23-2024 Chloride [Moles/Vol] 107 mmol/L 98-107 [facility] Comprehensive Metabolic Prof ilon 07-23-2024 Albumin [Mass/Vol] 4.1 g/dL Normal 3.2-5.0 [facility] Comment on above: Performed By: #### L 506.0400, L500.4050, L501.9520, L500.4100 ####[facility] [address] [place], [address] Albumin/Globulin [Mass ratio] 1.1 {ratio} Normal 0.9-2.[address] [facility] Comment on above: Performed By: #### L 506.0400, L500.4050, L501.9520, L500.4100 ####[facility] [address] [place], [address] ALK P 80 U/L Normal 45-[address] [facility] Comment on above: Performed By: #### L 506.0400, L500.4050, L501.9520, L500.4100 ####[facility] [address] [place], [address] ALT [Catalytic activity/Vol] 20 U/L Normal 13-[address] [facility] Comment on above: Performed By: #### L 506.0400, L500.4050, L501.9520, L500.4100 ####[facility] [address] [place], [address] AST [Catalytic activity/Vol] 21 U/L Normal 15-[address] [facility] Comment on above: Performed By: #### L 506.0400, L500.4050, L501.9520, L500.4100 ####[facility] [address] [place], [address] Bilirubin [Mass/Vol] 0.60 mg/dL Normal 0.20-1.00 [facility] Comment on above: Result Comment: For patients on eltrombopag therapy, use of Dimension [place] TBIL is not recommended. Performed By: #### L 506.0400, L500.4050, L501.9520, L500.4100 ####[facility] [address] [place], [address] BUN/CRE 16.1 RATIO Normal 10-[address] [facility] Comment on above: Performed By: #### L 506.0400, L500.4050, L501.9520, L500.4100 ####[facility] [address] [place], [address] CA,Total 9.6 mg/dL Normal 8.5-10.[address] [facility] Comment on above: Performed By: #### L 506.0400, L500.4050, L501.9520, L500.4100 ####[facility] [address] [place], [address] Chloride [Moles/Vol] 107 mmol/L Normal 98-107 [facility] Comment on above: Performed By: #### L 506.0400, L500.4050, L501.9520, L500.4100 ####[facility] [address] [place], [address] CO2 [Moles/Vol] 27.0 mmol/L Normal 21.0-32.[address] [facility] Comment on above: Performed By: #### L 506.0400, L500.4050, L501.9520, L500.4100 ####[facility] [address] [place], [address] Creatinine [Mass/Vol] 0.87 mg/dL Normal 0.55-1.02 [facility] Comment on above: Result Comment: The validity of the calculated GFR GFRAA in patients over 70 years has not been determined. Clinical correlation is essential. Performed By: #### L 506.0400, L500.4050, L501.9520, L500.4100 ####[facility] [address] [place], [address] EST GFR - AA 94 mL/min Normal >[address] [facility] Comment on above: Result Comment: Afri can [place] GFR Calc Performed By: #### L 506.0400, L500.4050, L501.9520, L500.4100 ####[facility] [address] [place], [address] GAP 5 Normal 5-[address] [facility] Comment on above: Performed By: #### L 506.0400, L500.4050, L501.9520, L500.4100 ####[facility] [address] [place], [address] GFR/1.73 sq M.predicted among non-blacks MDRD (S/P/Bld) [Vol rate/Area] 78 mL/min/{1.73_m2} Normal >[address] [facility] Comment on above: Result Comment: Non- GFR Calc Performed By: #### L 506.0400, L500.4050, L501.9520, L500.4100 ####[facility] [address] [place], [address] Globulin (S) [Mass/Vol] 3.6 g/dL Normal 2.2-4.2 [facility] Comment on above: Performed By: #### L 506.0400, L500.4050, L501.9520, L500.4100 ####[facility] [address] [place], [address] Glucose [Mass/Vol] 86 mg/dL Normal 74-106 [facility] Comment on above: Performed By: #### L 506.0400, L500.4050, L501.9520, L500.4100 ####[facility] [address] [place], [address] Potassium [Moles/Vol] 4.6 mmol/L Normal 3.5-5.1 [facility] Comment on above: Performed By: #### L 506.0400, L500.4050, L501.9520, L500.4100 ####[facility] [address] [place], [address] Sodium [Moles/Vol] 138 mmol/L Normal 136-145 [facility] Comment on above: Performed By: #### L 506.0400, L500.4050, L501.9520, L500.4100 ####[facility] [address] [place], [address] T PROT 7.7 g/dL Normal 6.4-8.[address] [facility] Comment on above: Performed By: #### L 506.0400, L500.4050, L501.9520, L500.4100 ####[facility] [address] [place], [address] Urea nitrogen [Mass/Vol] 14 mg/dL Normal 7-[address] [facility] Comment on above: Performed By: #### L 506.0400, L500.4050, L501.9520, L500.4100 ####[facility] [address] [place], [address] Direct serum free thyroxine (FT4) measurementOrdered By: Arianne Panda on 07-23-2024 Free T4 [Mass/Vol] 0.38 ng/dL Low 0.76-1.46 [facility] Glomerular filtration rate ( GFR) estimationOrdered By: Arianne Panda on 07-23-2024 GFR/1.73 sq M.predicted among non-blacks MDRD (S/P/Bld) [Vol rate/Area] 78 mL/min/{1.73_m2} >[address] [facility] Comment on above: Non- GFR Calc Glucose measurementOrdered B y: Arianne Panda on 07-23-2024 Glucose [Mass/Vol] 86 mg/dL 74-106 [facility] High density lipoprotein (HD L) measurementOrdered By: Arianne Panda on 07-23-2024 Cholesterol in HDL [Mass/Vol] 74 mg/dL >[address] [facility] Comment on above: The drugs N-Acetylcy steine and Metamizole may falsely depress this assay. Reference Range HDL <40 mg/dL Low HDL Cholesterol HDL >or= 60 mg/dL High HDL Cholesterol Internal Medicine Office Vis reggie 07-23-2024 Internal Medicine Office Visit [facility] [address] [place] [address] OFFICE VISIT Date of Service: 07/23/24 MR#: [id number] Acct: [id number] Name: ROSITA MEJIAS Rep #: [id number] : 1985 Provider: Dr. 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 Accompanied by: Self Is patient in pain?: No Allergies tizanidine Allergy (Mild, Verified 07/23/24 09:19) anxiety codeine Adverse Reaction (Verified 07/23/24 09:19) Hives Medications ???Medication ???Instructions ???Recorded ???Confirmed ???Type buspirone 5 mg tablet 5 mg PO .COMPLEX #60 tabs 12/04/22 07/23/24 Rx primidone 50 mg tablet 50 mg PO .COMPLEX #90 tabs 12/04/2 3 07/23/24 Rx levothyroxine 50 mcg tablet 50 mcg PO DAILY #30 tabs 01/17/24 07/23/24 Rx omeprazole 40 mg capsule,delayed 40 mg PO DAILY #90 caps 06/30/24 0 07/23/24 Rx release amlodipine 5 mg tablet 5 mg PO QDAY #30 tabs 07/23/2411/09 Rx Have you fallen in the past year?: No Nurse's Note: discuss testing for diabetes d/t family history patient feels cold often especially hands [facility] Medical History (Updated 07/23/24 @ 13:[address] Arianne Panda MD) Hypertension Hypothyroidism Screening for thyroid disorder Hyperlipidemia Foot pain GERD (gastroesophageal reflux disease) Facial lesion Encounter for vitamin deficiency screening Preventative health care Essential tremor Spastic hemiparesis History of bladder infections Surgical History History of tubal ligation Family History Mother Myocardial infarction Father Myocardial infarction Grandmother Lung cancer Other Alcoholism Asthma Breast cancer Colon cancer Depression Seizures Social History Smoking Status: Current every day smoker tobacco type: cigarettes Tobacco: How many years used: 10 Electronic Cigarette Use: not used second hand exposure: Yes alcohol intake: current alcohol intake frequency: holidays/special occasions only substance use type: marijuana caffeine: Yes what type of physical activity do you participate in: none additional social history: Boyfriend- Baljinder HPI HPI Chief Complaint: follow up chronic conditions Details: ROSITA MEJIAS, is a 38 F who presents to the office today for follow-up of her chronic conditions. Started on levothyroxine following blood work at her last visit suggestive of significant hypothyroidism. She was advised to recheck her labs in 6 to 8 weeks but she did not. She states that she has been taking levothyroxine consistently and symptom andrews she feels better. Less cold intolerance and fatigue. Blood pressure has remained persistently elevated. Initial blood pressure at 162/72. Repeat with similar. Also history of hyperlipidemia. Positive family history of hypertension and hyperlipidemia. She smokes. She states that she is try to cut out salt/sodium from her diet. Other chronic conditions are stable. ROS Const Constitutional: No body ache, excessive sweating, fatigue, fever(s), frequent falls, headache(s), snoring, weakness, weight change, sleep problems or change in appetite Eyes Eyes: No blurry vision, change in vision, dry eyes, floaters, eye pain or Light sensitivity ENT ENT: No abnormal hearing, ear or mastoid pain, tinnitus, balance problems, nosebleed/epistaxis, nasal congestion, headache(s), neck pain or sore throat Resp Respiratory: No cough, excessive phlegm production, pain on inspiration, shortness of breath, snoring or wheezing Cardio Cardiology: No chest pain at rest, chest pain with exertion, excessive sweating, shortness of breath, dyspnea on exertion, lightheadedness, orthopnea or palpitations Gastro GI: No abdominal pain, change in bowel habits, constipation, cramping, diarrhea, nausea/dyspepsia or vomiting Genitourinary-Female : No burning urination, painful urination, urinary incontinence, urinary frequency, blood in urine, suprapubic fullness, abnormal periods or pelvic pain Musc Musculoskeletal: No abnormal gait, joint pain, back pain, limited range of motion, muscle cramps, neck pain, numbness, stiffness, tingling or Arthritis Skin Skin: No dry skin, redness, excessive hair growth, yellowing of the ey (more content not included)... Normal [facility] Laboratory - Chemistry and C hemistry - challengeOrdered By: Arianne Panda on 07-23-2024 AST [Catalytic activity/Vol] 21 U/L 15-[address] [facility] Lipid Profileon 07-23-2024 Cholesterol [Mass/Vol] 259 mg/dL High 200 [facility] Comment on above: Result Comment: <200 mg/dL Desirable 200-240 mg/dL Borderline >240 mg/dL High Risk Performed By: #### L 506.0400, L500.4050, L501.9520, L500.4100 ####[facility] [address] [place], [address] Cholesterol in HDL [Mass/Vol] 74 mg/dL Normal [facility] Comment on above: Result Comment: The drugs N-Acetylcysteine and Metamizole may falsely depress this assay. Reference Range HDL <40 mg/dL Low HDL Cholesterol HDL >or= 60 mg/dL High HDL Cholesterol Performed By: #### L 506.0400, L500.4050, L501.9520, L500.4100 ####[facility] [address] [place], [address] Cholesterol in LDL [Mass/Vol] 161 mg/dL High 0-[address] [facility] Comment on above: Performed By: #### L 506.0400, L500.4050, L501.9520, L500.4100 ####[facility] [address] [place], [address] Cholesterol in VLDL [Mass/Vol] 24 mg/dL Normal 5-[address] [facility] Comment on above: Performed By: #### L 506.0400, L500.4050, L501.9520, L500.4100 ####[facility] [address] [place], [address] Triglyceride [Mass/Vol] 120 mg/dL Normal [facility] Comment on above: Result Comment: The drugs N-Acetylcysteine and Metamizole may falsely depress this assay. Serum Triglycerides Reference Interval Normal <150 mg/dL Borderline high 150 - 199 mg/dL High 200 - 499 mg/dL Very High > or = 500 mg/dL Performed By: #### L 506.0400, L500.4050, L501.9520, L500.4100 ####[facility] [address] [place], [address] Low density lipoprotein (LDL ) cholesterol measurementOrdered By: Arianne Panda on 07-23-2024 Cholesterol in LDL [Mass/Vol] 161 mg/dL High 0-[address] [facility] Potassium measurementOrdered By: Arianne Panda on 07-23-2024 Potassium [Moles/Vol] 4.6 mmol/L 3.5-5.1 [facility] Serum anion gap measurementO rdered By: Arianne Panda on 07-23-2024 Anion gap [Moles/Vol] 5 mmol/L 5-15 [facility] Serum globulin measurementOr dered By: Arianne Panda on 07-23-2024 Globulin (S) [Mass/Vol] 3.6 g/dL 2.2-4.2 [facility] Serum or plasma alanine bryant otransferase (ALT) measurementOrdered By: Arianne Panda on 07-23-2024 ALT [Catalytic activity/Vol] 20 U/L 13-[address] [facility] Serum or plasma albumin dawit urement (mass/volume)Ordered By: Arianne Valentinopauljabier on 07-23-2024 Albumin [Mass/Vol] 4.1 g/dL 3.2-5.0 [facility] Serum or plasma alkaline jany sphatase measurementOrdered By: lukasmelissacristiano Valentinopauljabier on 07-23-2024 ALP [Catalytic activity/Vol] 80 U/L 45-[address] [facility] Serum or plasma calcium dawit urement (mass/volume)Ordered By: Arianne Valentinopauljabier on 07-23-2024 Calcium [Mass/Vol] 9.6 mg/dL 8.5-10.1 [facility] Serum or plasma cholesterol measurement (mass/volume)Ordered By: Arianne Valentinopauljabier on 07-23-2024 Cholesterol [Mass/Vol] 259 mg/dL High <200 [facility] Comment on above: <200 mg/dL Desirable 200-240 mg/dL Borderline >240 mg/dL High Risk Serum or plasma creatinine m easurement (mass/volume)Ordered By: Arianne Panda on 07-23-2024 Creatinine [Mass/Vol] 0.87 mg/dL 0.55-1.02 [facility] Comment on above: The validity of the calculated GFR & GFRAA in patients over 70 years has not been determined. Clinical correlation is essential. Serum or plasma thyroid stim ulating hormone (TSH) measurement (units/volume)Ordered By: Eunicejules Valentinopauljabier on 07-23-2024 TSH Qn 80.800 uIU/mL High 0.358-3.[address] [facility] Serum or plasma urea nitroge n measurement (mass/volume)Ordered By: Arianne Panda on 07-23-2024 Urea nitrogen [Mass/Vol] 14 mg/dL 7-[address] [facility] Sodium levelOrdered By: Eunicelukas christine Chichopauljabier on 07-23-2024 Sodium [Moles/Vol] 138 mmol/L 136-145 [facility] T4 Free Directon 07-23-2024 T4 FREE DIRECT 0.38 ng/dL Low 0.76-1.[address] [facility] Comment on above: Performed By: #### L 506.0400, L500.4050, L501.9520, L500.4100 ####[facility] [address] [place], [address] Thyroid Stim Hormone (TSH)on 07-23-2024 TSH 80.800 uIU/mL High 0.358-3.[address] [facility] Comment on above: Performed By: #### L 506.0400, L500.4050, L501.9520, L500.4100 ####[facility] [address] [place], [address] Total proteinOrdered By: Zac Panda on 07-23-2024 Protein [Mass/Vol] 7.7 g/dL 6.4-8.2 [facility] Triglycerides measurementOrd ered By: Arianne Panda on 07-23-2024 Triglyceride [Mass/Vol] 120 mg/dL <199 [facility] Comment on above: The drugs N-Acetylcy steine and Metamizole may falsely depress this assay.Serum Triglycerides Reference Interval Normal <150 mg/dL Borderline high 150 - 199 mg/dL High 200 - 499 mg/dL Very High > or = 500 mg/dL Very low density lipoprotein (VLDL) cholesterol measurementOrdered By: Arianne Panda on 07-23-2024 Very low density lipoprotein (VLDL) cholesterol measurement 24 mg/dL 5-[address] [facility] Contract Preparer Office Visit Reporton 06-25-2024 Contract Preparer Office Visit Report [facility] [address], [address] [place] [address] OFFICE VISIT Date of Service: 06/25/24 MR#: [id number] Acct: [id number] Name: ROSITA MEJIAS Rep #: [id number] : 1985 Provider: FELA Smith Age/Sex: 38/F Location: [facility] [place] Status: Signed Intake Vital Signs 05/28/24 12:57 06/25/24 13:33 06/25/24 13:37 Height 5 ft 1 in 5 ft 1 in 5 ft 1 in Weight: 130 lb 135 lb BMI 24.5 25.4 BP 160/96 H 175/101 H Intake Visit Reasons: Retest for trich Retail Performance Coach Required: No Is patient in pain?: No Allergies tizanidine Allergy (Mild, Verified 06/25/24 13:32) anxiety codeine Adverse Reaction (Verified 06/25/24 13:32) Hives Medications ???Medication ???Instructions ???Recorded ???Confirmed ???Type buspirone 5 mg tablet 5 mg PO .COMPLEX #60 tabs 12/04/22 06/25/24 Rx primidone 50 mg tablet 50 mg PO .COMPLEX #90 tabs 12/04/22 06/25/24 Rx omeprazole 40 mg capsule,delayed 40 mg PO DAILY #90 caps 01/16/24 06/25/24 Rx release levothyroxine 50 mcg tablet 50 mcg PO DAILY #30 tabs 01/17/24 06/25/24 Rx Control Method: tubal PFSH Medical History Hypothyroidism Screening for thyroid disorder Hyperlipidemia Foot pain GERD (gastroesophageal reflux disease) Facial lesion Encounter for vitamin deficiency screening Preventative health care Essential tremor Spastic hemiparesis History of bladder infections Surgical History History of tubal ligation Family History Mother Myocardial infarction Father Myocardial infarction Grandmother Lung cancer Other Alcoholism Asthma Breast cancer Colon cancer Depression Seizures Social History Smoking Status: Current every day smoker tobacco type: cigarettes Tobacco: How many years used: 10 Electronic Cigarette Use: not used second hand exposure: Yes alcohol intake: current alcohol intake frequency: holidays/special occasions only substance use type: marijuana caffeine: Yes what type of physical activity do you participate in: none additional social history: Boyfriend- Baljinder HARRIS Retest for trich Details: ROSITA MEJIAS is a 38 year old who presents for retest of trich. Reports she did finish the entire course of antibiotics given (Flagyl). Reports no symptoms today. Doing well over all. Female Reproductive History Menopausal Symptoms: No night sweats History 5 Elective abortions Hx Para 5 Spontaneous abortions Hx # Term Pregnancies Ectopic pregnancies Hx # Pregnancies Multiple births # of living children ROS Const Constitutional: Reports as per HPI; Denies body ache, chills, fatigue, fever(s), increased appetite, poor appetite, night sweats, weight gain or weight loss : Reports as per HPI and vaginal discharge; Denies pelvic pain, prolapse symptoms, urinary frequency, urinary incontinence, urinary urgency, vaginal dryness, vaginal odor or vaginal pruritus Exam Const General: cooperative, healthy appearing, comfortable, no acute distress, well developed and well groomed Resp Effort Inspection: normal respiratory effort General: bladder normal to palpation External Female Exam: normal external appearance, normal appearance of the urethra and no lesions Urethra: normal appearance of the urethra and normal palpation Speculum Exam - Vagina: normal appearance of the vagina and normal vaginal discharge Speculum Exam - Cervix: normal appearance of the cervix, no cervical discharge, no lesions and nontender Bimanual Exam- Vagina Uterus: normal bimanual exam, uterine size normal, bladder normal to palpation, No tender, non-tender and no cervical motion tenderness Psych Appearance: grossly normal Mental Status: mental status grossly normal Affect: normal affect Speech and Movement: speech and movement normal Attitude: cooperative Coding Level of Care Code Established Pt Off vis,est,level 3 Patient Type Established Diagnoses Vaginal discharge N89.8 Assessment and Plan Assessment and Plan (1) Vaginal discharge: Status: Acute Comment: previous trich positive; treated with flagyl Plan: culture obtained today; treat if positive. Call office with questions or concerns. Orders: Orders POC Trichomonas Vaginalis Today N89.8 - Other specified noninflammatory disorders of vagina 06/25/24 1353 Date Naa Garza NP-C Cosigner Signature: Date (if applicable) CC: Normal [facility] Contract Preparer Office Visit Reporton 05-28-2024 Contract Preparer Office Visit Report [facility] [address], [address] [place] [address] OFFICE VISIT Date of Service: 05/28/24 MR#: [id number] Acct: [id number] Name: ROSITA MEJIAS Rep #: [id number] : 1985 Provider: FELA Smith Age/Sex: 38/F Location[place] [facility] [place] Status: Signed Intake Vital Signs 05/09/24 11:35 05/28/24 12:57 Height 5 ft 1 in 5 ft 1 in Weight: 129 lb 2 oz 130 lb BMI 24.4 24.5 BP 150/98 H 160/96 H Intake Visit Reasons: Retest for Trich Chief Complaint: retest for trich Retail Performance Coach Required: No Is patient in pain?: No Allergies tizanidine Allergy (Mild, Verified 05/28/24 13:02) anxiety codeine Adverse Reaction (Verified 05/28/24 13:02) Hives Medications ???Medication ???Instructions ???Recorded ???Confirmed ???Type buspirone 5 mg tablet 5 mg PO .COMPLEX #60 tabs 12/04/22 05/28/24 Rx primidone 50 mg tablet 50 mg PO .COMPLEX #90 tabs 12/04/22 05/28/24 Rx omeprazole 40 mg capsule,delayed 40 mg PO DAILY #90 caps 01/16/24 05/28/24 Rx release levothyroxine 50 mcg tablet 50 mcg PO DAILY #30 tabs 01/17/24 05/28/24 Rx metronidazole 500 mg tablet 500 mg PO BID 7 days #14 tabs 05/26/24 05/28/24 Rx Is last menstrual period known: No Post menopausal: No Patient : No : No PFSH Medical History Hypothyroidism Screening for thyroid disorder Hyperlipidemia Foot pain GERD (gastroesophageal reflux disease) Facial lesion Encounter for vitamin deficiency screening Preventative health care Essential tremor Spastic hemiparesis History of bladder infections Surgical History History of tubal ligation Family History Mother Myocardial infarction Father Myocardial infarction Grandmother Lung cancer Other Alcoholism Asthma Breast cancer Colon cancer Depression Seizures Social History Smoking Status: Current every day smoker tobacco type: cigarettes Tobacco: How many years used: 10 Electronic Cigarette Use: not used second hand exposure: Yes alcohol intake: current alcohol intake frequency: holidays/special occasions only substance use type: marijuana caffeine: Yes what type of physical activity do you participate in: none additional social history: Boyfriend- Baljinder HPI Retest for Trich Details: ROSITA MEJIAS is a 38 year old who presents for trich testing. She reports she did take her first dose of antibiotic last night. She reports she does have a discharge and odor but unsure if this is different than her normal. Original diagnosis via PAP so therefore today is for confirmation. Denies fever, chills. She is sexually active-1 partner. Female Reproductive History Menopausal Symptoms: No night sweats History 5 Elective abortions Hx Para 5 Spontaneous abortions Hx # Term Pregnancies Ectopic pregnancies Hx # Pregnancies Multiple births # of living children ROS Const Constitutional: Reports as per HPI; Denies body ache, chills, fatigue, fever(s), increased appetite, poor appetite, night sweats, weight gain or weight loss : Reports as per HPI and vaginal discharge; Denies pelvic pain, prolapse symptoms, urinary frequency, urinary incontinence, urinary urgency, vaginal dryness, vaginal odor or vaginal pruritus Exam Const General: cooperative, healthy appearing, comfortable, no acute distress, well developed and well groomed Resp Effort Inspection: normal respiratory effort General: bladder normal to palpation External Female Exam: normal external appearance, normal appearance of the urethra and no lesions Urethra: normal appearance of the urethra and normal palpation Speculum Exam - Vagina: normal appearance of the vagina and abnormal vaginal discharge (thin) white Speculum Exam - Cervix: normal appearance of the cervix, no cervical discharge, no lesions and nontender Bimanual Exam- Vagina Uterus: normal bimanual exam, uterine size normal, bladder normal to palpation, No tender, uterine mobility normal, consistency normal, non-tender and no cervical motion tenderness Psych Appearance: grossly normal Mental Status: mental status grossly normal Affect: normal affect Speech and Movement: speech and movement normal Attitude: cooperative Coding Level of Care Code Established Pt Off vis,est,level 3 Patient Type Established Diagnoses Vaginal discharge N89.8 Assessment and Plan Assessment and Plan (1) Vaginal discharge: Status: Acute Plan: cultures obtained; advised to finish antibiotic as since she has already started there is a chance for false negative result. Return (more content not included)... Normal [facility] PAP IG HPV APTIMA 16/18,45on 05-21-2024 ADEQ Comment Normal . [facility] Comment on above: Order Comment: Speci men Comment: [id number] Specimen Comment: No. of containers..01 ThinPrep Vial Result Comment: Sati sfactory for evaluation. Endocervical and/or squamous metaplastic cells (endocervical component) are present. Performed By: #### L 7400.0280 #### [facility] [address] [place], [address] COMM . Normal . [facility] Comment on above: Order Comment: Speci men Comment: [id number] Specimen Comment: No. of containers..01 ThinPrep Vial Performed By: #### L 7400.0280 #### [facility] [address] [place], [address] COMMENT Comment Normal . [facility] Comment on above: Order Comment: Speci men Comment: [id number] Specimen Comment: No. of containers..01 ThinPrep Vial Result Comment: This liquid based ThinPrep(R) pap test was screened with the use of an image guided system. Performed By: #### L 7400.0280 #### [facility] [address] [place], [address] DIAG Comment Normal . [facility] Comment on above: Order Comment: Speci men Comment: [id number] Specimen Comment: No. of containers..01 ThinPrep Vial Result Comment: NEGA TIVE FOR INTRAEPITHELIAL LESION OR MALIGNANCY. TRICHOMONAS VAGINALIS IS PRESENT. Performed By: #### L 7400.0280 #### [facility] [address] [place], [address] HPV APTIMA, HR Negative Normal Negative [facility] Comment on above: Order Comment: Speci men Comment: [id number] Specimen Comment: No. of containers..01 ThinPrep Vial Result Comment: This nucleic acid amplification test detects fourteen high- risk HPV types (16,18,31,33,35,39,45,51,52,56,58,59,66,68) without differentiation. Performed By: #### L 7400.0280 #### [facility] [address] [place], [place], [address] HPV Kerri Rfx Comment Normal . [facility] Comment on above: Order Comment: Speci men Comment: [id number] Specimen Comment: No. of containers..01 ThinPrep Vial Result Comment: Crit eria not met, HPV Genotype not performed. Performed at: - [address] [id number] Ornamental Ironworker Helper: Arlene Enriquez MD, Phone: [phone] Performed at: = - [address] [id number] Ornamental Ironworker Helper: Arlene Enriquez MD, Phone: [phone] Performed By: #### L 7400.0280 #### [facility] [address] [place], [address] PAPSMR Comment Normal . [facility] Comment on above: Order Comment: Spec men Comment: [id number] Specimen Comment: No. of containers..01 ThinPrep Vial Result Comment: The Pap smear is a screening test designed to aid in the detection of premalignant and malignant conditions of the uterine cervix. It is not a diagnostic procedure and should not be used as the sole means of detecting cervical cancer. Both false-positive and false-negative reports do occur. Performed By: #### L 7400.0280 #### [facility] [address] [place], [place], [id number] PERFORM Comment Normal . [facility] Comment on above: Order Comment: Speci men Comment: [id number] Specimen Comment: No. of containers..01 ThinPrep Vial Result Comment: Carie Velazquez Senior Talent Management Consultant (ASCP) Performed By: #### L 7400.0280 #### [facility] [address] [place], [address] Contract Preparer Office Visit Reporton 05-09-2024 Contract Preparer Office Visit Report [facility] [address], [address] [place] [address] OFFICE VISIT Date of Service: 05/09/24 MR#: [id number] Acct: [id number] Name: ROSITA MEJIAS Rep #: [id number] : 1985 Provider: Dr. 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) Retail Performance Coach Required: No Is patient in pain?: No Allergies tizanidine Allergy (Mild, Verified 05/09/24 11:36) anxiety codeine Adverse Reaction (Verified 05/09/24 11:36) Hives Medications ???Medication ???Instructions ???Recorded ???Confirmed ???Type buspirone 5 mg tablet 5 mg PO .COMPLEX #60 tabs 12/04/22 05/09/24 Rx primidone 50 mg tablet 50 mg PO .COMPLEX #90 tabs 12/04/22 05/09/24 Rx omeprazole 40 mg capsule,delayed 40 mg PO DAILY #90 caps 01/16/24 05/09/24 Rx release levothyroxine 50 mcg tablet 50 mcg PO DAILY #30 tabs 01/17/24 05/09/24 Rx Post menopausal: No Patient : No : No PFSH Medical History Hypothyroidism Screening for thyroid disorder Hyperlipidemia Foot pain GERD (gastroesophageal reflux disease) Facial lesion Encounter for vitamin deficiency screening Preventative health care Essential tremor Spastic hemiparesis History of bladder infections Surgical History History of tubal ligation Family History Mother Myocardial infarction Father Myocardial infarction Grandmother Lung cancer Other Alcoholism Asthma Breast cancer Colon cancer Depression Seizures Social History (Updated 05/09/24 @ 11:47 by Julia Cervantes) Smoking Status: Current every day smoker tobacco type: cigarettes Tobacco: How many years used: 10 Electronic Cigarette Use: not used second hand exposure: Yes alcohol intake: current alcohol intake frequency: holidays/special occasions only substance use type: marijuana caffeine: Yes what type of physical activity do you participate in: none additional social history: Boyfriend- Baljinder History 5 Elective abortions Hx Para 5 Spontaneous abortions Hx # Term Pregnancies Ectopic pregnancies Hx # Pregnancies Multiple births # of living children HPI Encounter for routine gynecological examination Details: ROSITA MEJIAS is a 38 year old who presents for annual exam. 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 Pt states that she has 5 children, all delivered vaginally and had a tubal ligation after her last child. She complains of heavy periods that are painful and wrap around her back. Last PAP: unknown History of abnormal PAP: unknown Last mammogram: n/a History of abnormal mammogram: n/a Colon cancer screening: unknown Other preventative health care screenings: followed by Dr. Panda Female Reproductive History Cycle Length: 21-35 Bleeding Duration: 5 Questions: metorrhagia: No, sexually active: Yes, dyspareunia: No and PCB: No Menopausal Symptoms: No hot flashes, No night sweats, No weight change, No mood changes, No difficulty concentrating, No sleep problems and No change in libido ROS Const Constitutional: Reports as per HPI; Denies fatigue, increased appetite, poor appetite, night sweats, weight gain or weight loss Cardio Card: Denies chest pain Resp Resp: Denies cough or dyspnea GI GI: Reports as per HPI; Denies abdominal pain, bloating, constipation, nausea or vomiting : Reports as per HPI and other; Denies difficulty voiding, dysuria, hematuria, hot flashes, nipple discharge, pelvic pain, prolapse symptoms, urinary frequency, urinary incontinence, urinary urgency, vaginal discharge, vaginal dryness, vaginal odor or vaginal pruritus Skin Skin/Breast: Denies changing lesions, breast mass, breast pain, breast skin changes or nipple discharge Psych Psych: Denies anxiety, change in libido, depression or difficulty concentrating Exam Const General: cooperative, healthy appearing, comfortable, no acute distress, well developed and well groomed HENMT Head: normal to inspection and normocephalic Ears: hearing grossly normal bilaterally and external ears normal Nose: external nose normal Face and sinus: normal facial exam Neck Neck: normal visual inspection, full ROM and no lympha (more content not included)... Normal [facility] Internal Medicine Office Vis itonell 01-16-2024 Internal Medicine Office Visit [facility] [address] [place] [address] [place] [address] OFFICE VISIT Date of Service: 01/16/24 MR#: [id number] Acct: [id number] Name: ROSITA MEJIAS Rep #: [id number] : 1985 Provider: Dr. Arianne butler MD Age/Sex: 38/F Location: [facility] [place] Status: Signed Intake Vital Signs 07/09/23 09:18 01/16/24 09:16 Height 5 ft 1 in 5 ft 1 in Weight: 126 lb BMI 23.8 BP 108/52 L Blood Pressure Location Lt brachial Position Sitting Respiration 14 Pulse 84 Pulse Source Monitor Temp 97.2 F L Temp Source Temporal Pulse Oximetry (%) 99 Oxygen Delivery Method room air Intake Visit Reasons: 6 M FU Chief Complaint: FU GERD. Cold [employer] Performance [employer] Required: No Is patient in pain?: No Allergies tizanidine Allergy (Mild, Verified 01/16/24 09:16) anxiety codeine Adverse Reaction (Verified 01/16/24 09:08) Hives Medications ???Medication ???Instructions ???Recorded ???Confirmed ???Type buspirone 5 mg tablet 5 mg PO .COMPLEX #60 tabs 12/04/22 01/16/24 Rx primidone 50 mg tablet 50 mg PO .COMPLEX #90 tabs 12/04/22 01/16/24 Rx omeprazole 40 mg capsule,delayed 40 mg PO DAILY #90 caps 01/16/24 01/16/24 Rx release PFSH Medical History (Updated 01/16/24 @ 11:[address] Arianne Panda MD) Screening for thyroid disorder Hyperlipidemia Foot pain GERD (gastroesophageal reflux disease) Facial lesion Encounter for vitamin deficiency screening Preventative health care Essential tremor Spastic hemiparesis History of bladder infections Surgical History History of tubal ligation Family History Mother Myocardial infarction Father Myocardial infarction Grandmother Lung cancer Other Alcoholism Asthma Breast cancer Colon cancer Depression Seizures Social History Smoking Status: Current every day smoker tobacco type: cigarettes Tobacco: How many years used: 10 Electronic Cigarette Use: not used second hand exposure: Yes alcohol intake: current alcohol intake frequency: holidays/special occasions only substance use type: marijuana what type of physical activity do you participate in: none HPI HPI Chief Complaint: FU GERD. Cold Details: ROSITA MEJIAS, is a 38 F who presents to the office today for follow-up. Also has some concerns. At her last visit, started on 40 mg of omeprazole due to reflux symptoms. She states that overall, symptoms are much better controlled at this dose. She occasionally has to take 2, 40 mg tablets when she eats spicy foods. No dark or bloody stools or unintentional weight changes. Slight elevation in LDL. Currently not on any medication. Lately as well, she states that she has noted that she is always cold. No changes in bowel movement or weight. Other chronic medical conditions are stable. ROS Const Constitutional: No body ache, chills, excessive sweating, fatigue, fever(s), frequent falls, headache(s), snoring, weakness, sleep problems or change in appetite Eyes Eyes: No blurry vision, change in vision, bulging eyes, floaters, visual disturbances, eye pain or Light sensitivity ENT ENT: No abnormal hearing, ear or mastoid pain, tinnitus, balance problems, nosebleed/epistaxis, nasal congestion, headache(s), neck pain or sore throat Resp Respiratory: No cough, excessive phlegm production, pain on inspiration, shortness of breath, snoring or wheezing Cardio Cardiology: No chest pain at rest, chest pain with exertion, excessive sweating, shortness of breath, dyspnea on exertion, lightheadedness, orthopnea or palpitations Gastro GI: No abdominal pain, change in bowel habits, constipation, cramping, diarrhea, nausea/dyspepsia or vomiting Genitourinary-Female : No burning urination, painful urination, urinary incontinence, urinary frequency, suprapubic fullness, side pain, abnormal vaginal bleeding or pelvic pain Musc Musculoskeletal: No abnormal gait, joint pain, back pain, limited range of motion, muscle cramps, neck pain or numbness Skin Skin: No dry skin, redness, excessive hair growth, yellowing of the eye, lesions, itchy eyes, rash or wounds Neuro Neurology: No abnormal gait, abnormal hearing, behavioral changes, unsteady gait/balance, weakness, frequent falls, headache(s), memory loss, numbness or visual disturbances Psych Psychiatric: No anxiety, No behavioral changes, No change in appetite, No depression, No memory loss and No Thoughts of harming yourself/Others Endo Endocrine: No cold intolerance, excessive sweating, fatigue, flushing, heat intolerance, increased thirst/drinking or increased hunger Aller/Imm Allergy/Immunologic: No itchy eyes, sea (more content not included)... Normal [facility] Lipid Profileon 01-16-2024 Cholesterol [Mass/Vol] 258 mg/dL High 200 [facility] Comment on above: Result Comment: <200 mg/dL Desirable 200-240 mg/dL Borderline >240 mg/dL High Risk Performed By: #### L [id number], L500.4100, L506.0400 #### [facility] [address] [place], [place], [id number] Cholesterol in HDL [Mass/Vol] 71 mg/dL Normal [facility] Comment on above: Result Comment: The drugs N-Acetylcysteine and Metamizole may falsely depress this assay. Reference Range HDL <40 mg/dL Low HDL Cholesterol HDL >or= 60 mg/dL High HDL Cholesterol Performed By: #### L [id number], L500.4100, L506.0400 #### [facility] [address] [place], [address] Cholesterol in LDL [Mass/Vol] 160 mg/dL High 0-[address] [facility] Comment on above: Performed By: #### L [id number], L500.4100, L506.0400 #### [facility] [address] [place], [address] Cholesterol in VLDL [Mass/Vol] 27 mg/dL Normal 5-[address] [facility] Comment on above: Performed By: #### L [id number], L500.4100, L506.0400 #### [facility] [address] [place], [address] Triglyceride [Mass/Vol] 135 mg/dL Normal [facility] Comment on above: Result Comment: The drugs N-Acetylcysteine and Metamizole may falsely depress this assay. Serum Triglycerides Reference Interval Normal <150 mg/dL Borderline high 150 - 199 mg/dL High 200 - 499 mg/dL Very High > or = 500 mg/dL Performed By: #### L [id number], L500.4100, L506.0400 #### [facility] [address] [place], [address] T4 Free Directon 01-16-2024 T4 FREE DIRECT 0.48 ng/dL Low 0.76-1.[address] [facility] Comment on above: Performed By: #### L [id number], [id number], L506.0400 ####[facility] [address] [place], [address] Thyroid Stim Hormone (TSH)on 01-16-2024 TSH 59.20 uIU/mL High 0.358-3.[address] [facility] Comment on above: Performed By: #### L [id number], [id number], L506.0400 ####[facility] [address] [place], [address] Absolute lymphocyte countOrd ered By: Arianne Panda on 07-09-2023 Lymphocytes Auto (Unsp spec) [#/Vol] 1.72 10*3/uL 0.83-4.[address] [facility] Automated lymphocyte count a s percentage of total leukocytesOrdered By: Arianne Panda on 07-09-2023 Lymphocytes/100 WBC Auto (Unsp spec) 18.6 % 19-[address] [facility] Basophil percentageOrdered B y: Arianne Panda on 07-09-2023 Basophils/100 WBC (Bld) 0.4 % 0-1 [facility] Bilirubin [Mass/Vol] 0.40 mg/dL 0.20-1.00 [facility] Comment on above: For patients on eltr ombopag therapy, use of Dimension [place] TBIL is not recommended. Chloride [Moles/Vol] 106 mmol/L 98-107 [facility] Cholesterol [Mass/Vol] 238 mg/dL <200 [facility] Comment on above: <200 mg/dL Desirable 200-240 mg/dL Borderline >240 mg/dL High Risk Eosinophils/100 WBC (Bld) 0.9 % 0-[address] [facility] Glucose [Mass/Vol] 102 mg/dL 74-106 [facility] Comment on above: Fasting Glucose resu lt from 100 to 125 mg/dL suggests IMPAIRED HOMEOSTASIS per A.D.A. criteria. Hemoglobin (Bld) [Mass/Vol] 14.4 g/dL 12.0-15.[address] [facility] Monocytes/100 WBC (Bld) 9.9 % 0-10 [facility] Neutrophils (Bld) [#/Vol] 6.5 10*3/uL 2.0-7.[address] [facility] Neutrophils/100 WBC (Bld) 69.8 % 47-[address] [facility] Potassium [Moles/Vol] 4.3 mmol/L 3.5-5.1 [facility] Protein [Mass/Vol] 7.7 g/dL 6.4-8.2 [facility] Sodium [Moles/Vol] 138 mmol/L 136-145 [facility] Triglyceride [Mass/Vol] 73 mg/dL <199 [facility] Comment on above: The drugs N-Acetylcy steine and Metamizole may falsely depress this assay.Serum Triglycerides Reference Interval Normal <150 mg/dL Borderline high 150 - 199 mg/dL High 200 - 499 mg/dL Very High > or = 500 mg/dL WBC (Bld) [#/Vol] 9.3 10*3/uL 4.4-11.0 [facility] Determination of erythrocyte mean corpuscular volume (MCV)Ordered By: Arianne Panda on 07-09-2023 MCV (RBC) [Entitic vol] 91.9 fL 81-99 [facility] Erythrocyte distribution wid th ratioOrdered By: [facility] Chichojabier on 07-09-2023 Erythrocyte distribution width (RBC) [Ratio] 13.7 % 11.6-14.[address] [facility] Erythrocyte distribution wid th standard deviationOrdered By: [facility] Berriencristiano Valentinojabier on 07-09-2023 Erythrocyte distribution width (RBC) [Entitic vol] 46.5 fL 35.1-43.[address] [facility] Hematocrit Auto (Bld) [Volum e fraction]Ordered By: Arianne Panda on 07-09-2023 Hematocrit (Bld) [Volume fraction] 43.1 % 37-[address] [facility] High density lipoprotein (HD L) measurementOrdered By: Arianne Panda on 07-09-2023 Cholesterol in HDL (Body fld) [Mass/Vol] 77 mg/dL >[address] [facility] Comment on above: The drugs N-Acetylcy steine and Metamizole may falsely depress this assay. Reference Range HDL <40 mg/dL Low HDL Cholesterol HDL >or= 60 mg/dL High HDL Cholesterol Immature granulocytes/100 WB C Auto (Bld)Ordered By: Arianne Panda on 07-09-2023 Immature granulocytes/100 WBC (Bld) 0.400 % 0.0-0.[address] [facility] Comment on above: IG% - Immature Granu locytes (promyelocytes, myelocytes and metamyelocytes) > 1% indicates that a LEFT SHIFT is Present. Laboratory - Chemistry and C hemistry - challengeOrdered By: Arianne Panda on 07-09-2023 Albumin/Globulin [Mass ratio] 1.1 {ratio} 0.9-2.[address] [facility] ALP [Catalytic activity/Vol] 89 U/L 45-[address] [facility] ALT [Catalytic activity/Vol] 18 U/L 13-[address] [facility] CO2 [Moles/Vol] 27.0 mmol/L 21.0-32.[address] [facility] Globulin (S) [Mass/Vol] 3.7 g/dL 2.2-4.2 [facility] Urea nitrogen/Creatinine [Mass ratio] 12.6 mg/mg 10-[address] [facility] Laboratory - Hematology and Cell countsOrdered By: Arianne Panda on 07-09-2023 MCH (RBC) [Entitic mass] 30.7 pg 27.0-32.[address] [facility] MCHC (RBC) [Mass/Vol] 33.4 g/dL 32-36 [facility] Nucleated RBC/100 WBC (Bld) [Ratio] 0 % 0-[address] [facility] Platelets (Bld) [#/Vol] 320 10*3/uL 150-[address] [facility] Low density lipoprotein (LDL ) cholesterol measurementOrdered By: Arianne Panda on 07-09-2023 Cholesterol in LDL (Body fld) [Moles/Vol] 146 mg/dL 0-[address] [facility] No Panel InformationOrdered By: Arianne Panda on 07-09-2023 Estimated GFR (MDRD) Amer 105 mL/min >[address] [facility] Comment on above: GFR Calc Estimated GFR (MDRD) Non-Af Amer 86 mL/min >[address] [facility] Comment on above: Non- GFR Calc Vitamin D 25-Hydroxy 23.4 ng/mL [facility] Comment on above: Vitamin D 25(OH) Sta tus Range Deficiency <20 ng/mL (50nmol/L) Insufficiency 20 - 30 ng/mL (50 - 75 nmol/L) Sufficiency 30 - 100 ng/mL (75 - 250 nmol/L) Toxicity >100 ng/mL (>250 nmol/L) Platelet mean volume Odin-Ec ker (Bld) [Entitic vol]Ordered By: Arianne Panda on 07-09-2023 Platelet mean volume (Bld) [Entitic vol] 10.3 fL 6.2-12.[address] [facility] RBC Auto (Bld) [#/Vol]Ordere d By: Arianne Panda on 07-09-2023 RBC (Bld) [#/Vol] 4.69 10*6/uL 4.2-5.4 [facility] Serum or plasma calcium dawit urement (mass/volume)Ordered By: Arianne Panda on 07-09-2023 Calcium [Mass/Vol] 9.6 mg/dL 8.5-10.1 [facility] Serum or plasma creatinine m easurement (mass/volume)Ordered By: Arianne Panda on 07-09-2023 Creatinine [Mass/Vol] 0.80 mg/dL 0.55-1.02 [facility] Comment on above: The validity of the calculated GFR & GFRAA in patients over 70 years has not been determined. Clinical correlation is essential. Serum or plasma urea nitroge n measurement (mass/volume)Ordered By: Arianen Panda on 07-09-2023 Urea nitrogen [Mass/Vol] 10 mg/dL 7-[address] [facility] Thin prep Papanicolaou smear with manual screeningOrdered By: Arianne Panda on 07-09-2023 Thin prep Papanicolaou smear with manual screening 4.0 g/dL 3.2-5.[address] [facility] Thin prep Papanicolaou smear with manual screening 19 U/L 15-[address] [facility] Thin prep Papanicolaou smear with manual screening 5 5-[address] [facility] Very low density lipoprotein (VLDL) cholesterol measurementOrdered By: Arianne Panda on 07-09-2023 Cholesterol in VLDL Calc [Moles/Vol] 15 mg/dL 5-[address] [facility] Vital Signs Date Time Vital Sign Value Performing Clinician Clarei chanoy 10-29-2024 09:04-0400 Body height 154.[address] Arianne Panda MD Work Phone: [facility] 10-29-2024 09:04-0400 Body mass index (BMI) [Ratio] 24.7 kg/m2 Dr. Arianne Panda MD Work Phone: [facility] 10-29-2024 09:04-0400 Body temperature 97.6 [degF] Dr. Arianne Panda MD Work Phone: [facility] 10-29-2024 09:04-0400 Body weight 59.[address] Arianne Panda MD Work Phone: [facility] 10-29-2024 09:04-0400 Diastolic blood pressure 82 mm[Hg] Dr. Arianne Panda MD Work Phone: [facility] 10-29-2024 09:04-0400 Heart rate 74 /min Dr. Arianne Panda MD Work Phone: [facility] 10-29-2024 09:04-0400 Respiratory rate 16 /min Dr. Arianne Panda MD Work Phone: [facility] 10-29-2024 09:04-0400 SaO2% (BldA) [Mass fraction] 99 % Dr. Arianne Panda MD Work Phone: [facility] 10-29-2024 09:04-0400 Systolic blood pressure 132 mm[Hg] Dr. Arianne Panda MD Work Phone: [facility] 07-23-2024 09:20-0500 Body mass index (BMI) [Ratio] 25.1 kg/m2 Dr. Arianne Panda MD Work Phone: [facility] 07-23-2024 09:20-0500 Body temperature 96 [degF] Dr. Arianne Panda MD Work Phone: [facility] 07-23-2024 09:20-0500 Body weight 60.[address] Arianne Panda MD Work Phone: [facility] 07-23-2024 09:20-0500 Diastolic blood pressure 72 mm[Hg] Dr. Arianne Panda MD Work Phone: [facility] 07-23-2024 09:20-0500 Heart rate 105 /min Dr. Arianne Panda MD Work Phone: [facility] 07-23-2024 09:20-0500 Respiratory rate 18 /min Dr. Arianne Panda MD Work Phone: [facility] 07-23-2024 09:20-0500 SaO2% (BldA) [Mass fraction] 95 % Dr. Arianne Panda MD Work Phone: [facility] 07-23-2024 09:20-0500 Systolic blood pressure 162 mm[Hg] Dr. Arianne Panda MD Work Phone: [facility] 07-09-2023 09:18-0500 Body height 154.[address] Arianne Panda Work Phone: [facility] 07-09-2023 09:18-0500 Body mass index (BMI) [Ratio] 22.1 kg/m2 Dr. Arianne Panda Work Phone: [facility] 07-09-2023 09:18-0500 Body temperature 98.6 [degF] Dr. Arianne Panda Work Phone: [facility] 07-09-2023 09:18-0500 Body weight 53.[address] Arianne Panda Work Phone: [facility] 07-09-2023 09:18-0500 Diastolic blood pressure 68 mm[Hg] Dr. Arianne Panda Work Phone: [facility] 07-09-2023 09:18-0500 Heart rate 73 /min Dr. Arianne Panda Work Phone: [facility] 07-09-2023 09:18-0500 Respiratory rate 18 /min Dr. Arianne Panda Work Phone: [facility] 07-09-2023 09:18-0500 SaO2% (BldA) [Mass fraction] 98 % Dr. Arianne Panda Work Phone: [facility] 07-09-2023 09:18-0500 Systolic blood pressure 108 mm[Hg] Dr. Arianne Panda Work Phone: [facility] 12-06-2021 14:57-0400 Body height 154.[address] Arianne Panda Work Phone: [facility] Work Phone: 12-06-2021 14:57-0400 Body mass index (BMI) [Ratio] 19.8 kg/m2 Dr. Arianne Panda Work Phone: [facility] Work Phone: 12-06-2021 14:57-0400 Body weight 47.[address] Arianne Panda Work Phone: [facility] Work Phone: 12-06-2021 14:57-0400 Diastolic blood pressure 90 mm[Hg] Dr. Arianne Panda Work Phone: [facility] Work Phone: 12-06-2021 14:57-0400 Heart rate 103 /min Dr. Arianne Panda Work Phone: [facility] Work Phone: 12-06-2021 14:57-0400 Respiratory rate 16 /min Dr. Arianne Panda Work Phone: [facility] Work Phone: 12-06-2021 14:57-0400 SaO2% (BldA) [Mass fraction] 98 % Dr. Arianne Panda Work Phone: [facility] Work Phone: 12-06-2021 14:57-0400 Systolic blood pressure 146 mm[Hg] Dr. Arianne Panda Work Phone: [facility] Work Phone: Encounters Encounter Date Encounter Type Care Provider Facility Start: 11-20-2024 ambulatory Arianne Fosteri ty:[facility] Start: 10-29-2024 End: 10-29-[address] Arianne Panda MD -[facility] Work Phone: Start: 10-29-2024 End: 10-29-[address] Arianne Panda MD Work Phone: [facility] Work Phone: Start: 10-29-2024 End: 10-29-2024 ambulatory Simranfremontcristiano Panda Facility:[facility] Start: 08-05-2024 ambulatory Arianne Fosteri ty:[facility] Start: 07-23-2024 End: 07-23-[address] Arianne Panda MD -Laboratory, [facility] Start: 07-23-2024 End: 07-23-[address] Arianne Panda MD -[facility] Work Phone: Start: 07-23-2024 End: 07-23-2024 ambulatory Arianne Panda Facility:[facility] Start: 07-23-2024 End: 07-[facility] Start: 06-25-2024 End: 06-25-2024 ambulatory [facility] Facility:[facility] Start: 05-28-2024 End: 05-28-2024 ambulatory [facility] Facility:[facility] Start: 05-21-2024 ambulatory Caroline Saleemjabier Leslie Fa cility:[facility] Start: 05-09-2024 End: 05-09-2024 ambulatory [facility] Facility:[facility] Start: 05-09-2024 End: 05-09-2024 [facility] Start: 01-16-2024 End: 01-16-2024 [facility] Start: 01-16-2024 End: 01-16-2024 ambulatory Arianne Panda Facility:[facility] Start: 07-09-2023 End: 07-09-[address] Arianne Panda Work Phone: [facility] Work Phone: Start: 07-09-[address] Arianne Panda Work Phone: [facility] Start: 07-09-2023 End: 07-09-2023 Encounter for general adult medical examination without abnormal findings Dr. Arianne Panda Work Phone: [facility] Start: 07-09-2023 End: 07-09-[address] Arianne Panda Work Phone: [facility] Work Phone: Start: 01-23-2022 End: 01-23-[address] Arianne Panda Work Phone: [facility] Start: 12-06-2021 End: 12-06-[address] Arianne Panda Work Phone: [facility] Neu[facility] Procedures Date Procedure Procedure Detail Performing Clinician Start: 07-23-2024 Measurement of renal function Dr. Arianne Panda MD Work Phone: Comment on above: GFR Calc Plan of Treatment Date Care Activity Detail Author Start: 10-29-2024 CBC W Auto Different ial panel - Blood [facility] Start: 10-29-2024 Comprehensive metabo lic 2000 panel - Serum or Plasma [facility] Start: 10-29-2024 Lipid 1996 panel - Serum or Plasma [facility] Start: 10-29-2024 T4 free measurement [facility] Start: 07-09-2023 Patient referral [facility] Work Phone: Alanine aminotransfe rase [Enzymatic activity/volume] in Serum or Plasma [facility] Albumin [Mass/volume ] in Serum or Plasma [facility] Alkaline phosphatase [Enzymatic activity/volume] in Serum or Plasma [facility] Anion gap in Serum or Plasma [facility] Bilirubin, total measurement [facility] BUN/Creatinine ratio [facility] Calcium [Mass/volume ] in Serum or Plasma [facility] Carbon dioxide, tota l [Moles/volume] in Central venous blood [facility] Cholesterol [Mass/vo lume] in Serum or Plasma [facility] Cholesterol in HDL [ Mass/volume] in Serum or Plasma [facility] Creatinine [Mass/vol ume] in Serum or Plasma [facility] Electrocardiographic procedure [facility] Erythrocyte mean cor puscular volume determination [facility] Glucose [Mass/volume ] in Serum or Plasma [facility] Hematocrit [Volume F raction] of Blood [facility] Hemoglobin [Mass/volume] in Blood [facility] Leukocytes [#/volume] in Blood [facility] Low density lipoprot ein cholesterol measurement [facility] Mean corpuscular hem oglobin concentration determination [facility] Mean corpuscular hem oglobin determination [facility] Center Measurement of renal function [facility] Neutrophil count [facility] Neutrophil percent d ifferential count [facility] Patient referral [facility] Work Phone: Platelets [#/volume] in Blood [facility] Potassium measurement [facility] Red blood cell count [facility] Red cell distributio n width determination [facility] Serum chloride measurement [facility] Sodium measurement [facility] Thyroid stimulating hormone measurement [facility] Total cholesterol:HD L ratio measurement [facility] Total protein measurement [facility] Triglycerides measurement [facility] Urea nitrogen [Mass/ volume] in Serum or Plasma [facility] VLDL cholesterol measurement [facility] Payers Date Payer Category Payer Self-pay [id number] 2023 Unknown [id number] 2023 Unknown [id number] Unknown [id number] 2.16.8 [id number] Unknown [id number] 2.16.8 40.1.614101.3.579.2.462 Unknown [id number] 2.16.8 40.1.007985.3.579.2.462 Unknown [id number] 2.16.8 40.1.139021.3.579.2.462 Unknown [id number] 2.16.8 40.1.409522.3.579.2.462 Unknown [id number] 2.16.8 40.1.665387.3.579.2.462 Unknown [id number] 2.16.8 40.1.748267.3.579.2.462 Unknown [id number] 2.16.8 40.1.769592.3.579.2.462 Unknown [id number] 2.16.8 40.1.810596.3.579.2.462 Unknown [id number] 2.16.8 40.1.504319.3.579.2.462 Unknown [id number] 2.16.8 40.1.014839.3.579.2.462 Unknown [id number] 2.16.8 40.1.572614.3.579.2.462 Unknown [id number] 2.16.8 40.1.762871.3.579.2.462 Social History Date Type Detail Facility Start: 12-06-2021 End: 07-09-2023 Tobacco smoking status NHIS Unknown if ever smoked [facility] Start: 1985 Sex Assigned At Female [facility] Start: 05-09-2024 Tobacco smoking stat us MDIS Smokes tobacco daily (finding) [facility] Evaluation note 07-23-2024 Note Date & Type Note Facility 07-23-2024 Evaluation note Diagnosis Onset Date Resolution GERD (gastroesophageal reflux disease) chronic July 23 9:08am Hyperlipidemia chronic July 232024 9:08am Hypertension chronic July 9:08am Hypothyroidism chronic July 232024 9:08am [facility] Work Phone: Evaluation note 07-23-2024 Note Date & Type Note Facility 07-23-2024 Evaluation note Diagnosis Onset Date Resolution GERD (gastroesophageal reflux disease) chronic July 23 9:08am Hyperlipidemia chronic July 232024 9:08am Hypertension chronic July 9:08am Hypothyroidism chronic July 232024 9:08am Anxiety chronic October 29, 2024 8:47am Hyperlipidemia chronic October 29, 2024 8:47am Hypertension chronic October 29 8:47am Hypothyroidism chronic October 29, 2024 8:47am [facility] Work Phone: Evaluation note Note Date & Type Note Facility Evaluation note Diagnosis Onset Date [id number] acute Essential tremor chronic Insomnia chronic Spastic hemiparesis chronic [facility] Work Phone: Evaluation note Note Date & Type Note Facility Evaluation note Diagnosis Onset Date Preventative health care acu te GERD (gastroesophageal reflux disease) chronic [facility] Work Phone: Reason for referral (narrative) Note Date & Type Note Facility Reason for referral (narrative) No reason for referral information available [facility] Work Phone: Chief Complaint and Reason for Visit Chief Complaint FOLLOW UP SPASTICITY,TREMOR, ABN GAIT Reason for Visit [id number] Essential tremor Insomnia Spastic hemiparesis Chief Complaint FOLLOW UP Reason for Visit Preventative health care GERD (gastroesophageal reflux disease) Chief Complaint Admit Date MED FOLLOW UP July 23, 2024 9 :08am 3 M FU October 29, 2024 8:47a m Reason for Visit Admit Date GERD (gastroesophageal reflux disease) F 2024 9:08am Hyperlipidemia July 23, 2024 9 :08am Hypertension July 23, 2024 9 :08am Hypothyroidism July 23, 2024 9 :08am Reason for Visit Admit Date GERD (gastroesophageal reflux disease) F 2024 9:08am Hyperlipidemia July 23, 2024 9 :08am Hypertension July 23, 2024 9 :08am Hypothyroidism July 23, 2024 9 :08am Anxiety October 29, 2024 8:47a m Hyperlipidemia October 29, 2024 8:47a m Hypertension October 29, 2024 8:47a m Hypothyroidism October 29, 2024 8:47a m Family History No Family History Records Found Relationship Condition Age at Onset Recorded Date/T rylan Not Specified Malignant neoplasm of colon Unknown Alcoholism Unknown Depression Unknown Malignant neoplasm of breast Unknown Seizure Unknown Asthma Unknown mother Myocardial infarction Unknown father Myocardial infarction Unknown grandmother Malignant neoplasm of lung Unknown Advance Directives No Advanced Directives Records Found Advance Directive Response Recorded Date/ Time Living Will No February 20 10:37pm Power of Junior Systems Administrator No February 20, 2021 10:37pm Advance Directive Response Recorded Date/ Time Living Will No February 20 9:37pm Power of Junior Systems Administrator No February 20, 2021 9:37pm Summary Purpose Additional Source Comments Goals (unrecognized section and content) Goals may be documented in a n alternate sectionGoals may be documented in an alternate sectionGoals may be documented in an alternate sectionGoals may be documented in an alternate section Care Teams (unrecognized sec tion and content) Team Status: Active Member Role Status Dates Dr. Arianne Panda MD Primary Care Provider Active Team Status: Inactive Member Role Status Dates Dr. Arianne Panda MD Primary Care Alee hidalgo, Attending Provider, Referring Provider Active Team Status: Inactive Member Role Status Dates Dr. Arianne Panda MD Primary Care Provider Active Start: July 23, 2024 End: July 23, 2024 Dr. Arianne Panda MD Attending Provider Active Start: July 23, 2024 End: July 23, 2024 Dr. Arianne aPnda MD Referring Provider Active Start: July 23, 2024 End: July 23, 2024 Team Status: Inactive Member Role Status Dates Dr. Arianne Panda MD Primary Care Provider Active Start: October 29, 2024 End: October 29, 2024 Dr. Arianne Panda MD Attending Provider Active Start: October 29, 2024 End: October 29, 2024 Dr. Arianne Panda MD Referring Provider Active Start: October 29, 2024 End: October 29, 2024 Team Status: Active Member Role Status Dates Dr. Arianne Panda MD Primary Care Provider Active Start: October 29, 2024 Dr. Arianne Panda MD Attending Provider Active Start: October 29, 2024 Team Status: Inactive Member Role Status Dates Dr. Arianne Panda MD Primary Care Provider Active Start: October 29, 2024 End: October 29, 2024 Dr. Arianne Panda MD Attending Provider Active Start: October 29, 2024 End: October 29, 2024 INFORMATION SOURCE (unrecogn ized section and content) DATE CREATED AUTHOR 11/19/2024 [facility] FOR RECORDS PERTAINING TO PATIENTS WHO ARE OR HAVE BEEN ENROLLED IN A CHEMICAL DEPENDENCY/SUBSTANCEABUSE PROGRAM, SOME INFORMATION MAY BE OMITTED. This clinical summary was aggregated from multiple sources. Caution should be exercised in using it in the provision of clinical care. This summary normalizes information from multiple sources, and as a consequence, information in this document may materially change the coding, format and clinical context of patient data. In addition, data may be omitted in some cases. CLINICAL DECISIONS SHOULD BE BASED ON THE PRIMARY CLINICAL RECORDS. [facility]. provides no warranty or guarantee of the accuracy or completeness of information in this document.
== END | disposition home or self-care (01) ==
LOC: PSN 10:54
PROVIDERS: PCP Internal Medicine; Referring Provider Internal Medicine; Visit Provider Internal Medicine
DX: I10 Essential (primary) hypertension (principal)
CPT/HCPCS: 93005